=== PATIENT | female | born 2000 | race Caucasian/White ===

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

== ENCOUNTER → 2021-01-20 15:27 | Outpatient (CLI) | payer BC, SELFPAY | PROVIDERS: Visit Provider Obstetrics & Gynecology | DX: N39.0 Urinary tract infection, site not specified (principal) | CPT/HCPCS: 87086; 87088; 87186 ==

== ENCOUNTER 2021-07-07 12:44 | Emergency (ER) | payer BC, SELFPAY ==
[2021-07-07 14:10] VITALS: BP 135/86; PULSE 95; RESP 20; TEMP 36.4; O2SAT 100; BMI 25.3
--- NOTE | 2021-07-07 14:13 | HMH.EDUTC ---
[facility] [place] Disposition Clinical Impression: Abdominal pain Qualifiers: Abdominal location: left lower quadrant Qualified Code(s): R10.32 - Left lower quadrant pain Hematuria Qualifiers: Hematuria type: unspecified type Qualified Code(s): R31.9 - Hematuria, unspecified Disposition: Still a Patient Condition on Discharge: Fair Referrals: David Celestin [Primary Care Provider] - Time of Disposition: 15:24 Medical Decision Making - Medical Records Medical records reviewed: No: I reviewed the patient's medical records. - Steven Inquiry Pt receiving controlled substance: No Vital Signs: 07/07/21 14:10 Temperature 97.5 F L Temperature Source Oral Pulse Rate [Left] 95 H Respiratory Rate 20 Blood Pressure [Right Arm] 135/86 Blood Pressure Mean [Right Arm] 102 02 Sat by Pulse Oximetry 100 - Lab Data Lab results reviewed: Yes: I reviewed the patient's lab results. Lab Results 07/07/21 14:30: Urine Color Dark yellow, Urine Appearance Clear, Urine pH 6.0, Ur Specific [place] 1.025, Urine Protein Negative, Urine Glucose (UA) Negative, Urine Ketones Trace, Urine Blood 1+, Urine Nitrate Negative, Urine Bilirubin 1+ A, Urine Urobilinogen 2, Ur Leukocyte Esterase Negative Orders (Tests/Meds): ORDERS Category Date Time Status Urine , HCG Qual. Stat Lab 07/07/21 14:30 Ordered Urine Culture Stat Micro 07/07/21 14:30 Ordered Medical Decision Narrative: She was transferred to the ER due to abdominal pain. [facility] [place] HPI - General Stated complaint: right lower abdominal pain, diarrhea Time Seen by Provider: 07/07/21 14:13 - History of Present Illness Provider Complaint: She states that early this morning she started having right lower quadrant abdominal pain. She has had nausea and diarrhea, but no vomiting. She has a very poor appetite. She still has her appendix. She has a history of an episode of kidney stone pain, but she states it did not feel like she is feeling now. - Related Data Home Medications Medication Instructions Recorded Confirmed etonogestrel 68 mg subdermal SUBDERMAL 02/20/21 02/20/21 implant Allergies Allergy/AdvReac Type Severity Reaction Status Date / Time No Known Allergies Allergy Verified 02/20/21 14:31 [facility] History - Hepatitis A Screen Attestation statement:: This patient has been screened for Hepatitis A risk factors. I have reviewed the patient's past medical history: Yes Medical History: Reports:: Anxiety, Depression Denies:: Cancer, Diabetes Mellitus Type 1, Diabetes Mellitus Type 2, Hypertension, Internal Pacemaker, MRSA Comment: seasonal allergies Other Surgeries: Yes: No Previous Surgery. No: Pacemaker Amputation: No Fractures: No - Social History Smoking Status: Current every day smoker Tobacco Type: cigarettes # Packs/Day (cigarettes): 1 Alcohol Intake: never Substance Use Type: denies use Occupational Status: employed Housing: apartment Household Members: family - Psychiatric History Pschychiatric History:: Reports:: Anxiety, Depression Family Hx:: Cancer, Diabetes, Heart Attack, Hypertension, Asthma ROS Obtained: Yes All systems reviewed & no additional complaints - Eyes Eyes: Denies eye discharge - ENT Ears, Nose, Mouth, and Throat: Denies dizziness, Denies otalgia, Denies sore throat - Cardiovascular Cardiovascular: Denies chest pain - Respiratory Respiratory: Denies chest congestion, Denies cough, Denies dyspnea, Denies stridor, Denies wheezing - Gastrointestinal Gastrointestingal: Denies: abdominal pain, diarrhea, nausea, vomiting - Genitourinary Female Genitourinary: Denies dysuria, Reports flank pain, Denies urinary frequency, Denies urinary incontinence, Denies urinary hesitancy, Denies urinary urgency - Musculoskeletal Musculoskeletal: Denies back pain Physical Exam - General General appearance: alert, in no apparent distress - Head Head exam: atraumatic, normocephalic, normal inspection - E
[2021-07-07 14:37] LABS: Apearance,Urine Clear (Clear); Bilirubin,Urine 1+ (Negative); Blood, Urine 1+ (Negative); Color,Urine Dark Yellow (Yellow); Glucose,Urine (UA) Negative (Negative); Ketones,Urine TRACE (Negative); Protein,Urine Negative (Negative); Specific Gravity, Urine 1.025 (1.005-1.030); UTC Leukocyte Esterase,Urine Negative (Negative); UTC Nitrate,Urine Negative (Negative); Urobilinogen,Urine 2 EU/dl (0.2)
[2021-07-07 15:22] VITALS: BP 113/48; PULSE 77; RESP 18; TEMP 37.1; O2SAT 98; BMI 25.3
--- NOTE | 2021-07-07 15:23 | PC.NURSE ---
ED MD at bedside for update on POC
--- NOTE | 2021-07-07 15:33 | CT_ITS ---
FINAL REPORT TECHNIQUE: After the administration of intravenous contrast, axial images were obtained through the abdomen and pelvis by computed tomography. The study was performed with techniques to keep radiation dose as low as reasonably achievable, (ALARA). Individual dose reduction techniques using automated exposure control or adjustment of mA and/or kV according to the patient's size were employed. CLINICAL HISTORY: RLQ pain FINDINGS: Abdomen: The lung bases are clear. The liver parenchyma is homogeneous. The gallbladder is present. The spleen, pancreas, adrenals and kidneys appear unremarkable. The aorta is normal in caliber. There is no free fluid or adenopathy. Pelvis: The appendix is normal. The urinary bladder is unremarkable. There is no free fluid or adenopathy. The uterus is present and lies eccentric to the left. There is no localized inflammatory reaction. IMPRESSION: No acute intra-abdominal process. Normal appendix. Reviewed, Interpreted and Dictated by Jorge A Huang MD Transcribed by Sammy Lam Authenticated by Jorge A Huang MD on 07/07/2021 04:14:38 PM [facility]
[2021-07-07 15:35] LABS: Urine Pregnancy, HCG Qual. Negative (Negative)
--- NOTE | 2021-07-07 15:46 | PC.NURSE ---
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
[2021-07-07 15:58] LABS: Basophils % 0.4 % (0.1-2.0); Eosinophils # 0.2 K/mm3 (0.0-0.4); Eosinophils % 1.7 % (0.1-12.0); Hematocrit 40.3 % (37.0-47.0); Hemoglobin 13.7 g/dL (12.2-16.2); Lymphocytes # 2.4 K/mm3 (0.7-4.5); Lymphocytes % 23.4 % (10-50); Mean Corpuscular Volume 85.2 fl (81-99); Mean Platelet Volume 7.2 fl (7.4-10.4); Monocytes # 0.6 K/mm3 (0.1-1.0); Monocytes % 5.7 % (1.7-9.3); Neutrophils # 6.9 K/mm3 (1.8-7.8); Neutrophils % 68.8 % (37.0-80.0); Platelet Count 306 K/mm3 (142-424); Red Blood Count 4.72 M/mm3 (4.20-5.40); Red Cell Distribution Width 12.2 % (11.5-17.5)
[2021-07-07 16:08] LABS: Alanine Aminotransferase 13 U/L (12-78); Albumin Level 4.5 g/dl (3.5-5.0); Albumin/Globulin Ratio 1.5 (1.1-1.8); Alkaline Phosphatase 58 U/L (38-126); Anion Gap 11.2 mEq/L (5-15); Aspartate Amino Transferase 26 U/L (14-36); Blood Urea Nitrogen 11 mg/dl (7-17); Calcium 8.8 mg/dl (8.4-10.2); Carbon Dioxide 27 mmol/L (22.0-30.0); Chloride 106 mmol/L (98-107); Creatinine Clearance Estimated 130 mL/min (50-200); Estimated Glomerular Filt Rate 106 ml/min (>60); GFR (African American) 128 ML/MIN (>60); Glucose 100 mg/dl (74-100); Lipase 40 U/L (23-300); Potassium 4.2 mmoL/L (3.5-5.1); Sodium 140 mmol/L (136-145); Total Protein,Serum 7.5 g/dl (6.3-8.2)
[2021-07-07 16:21] VITALS: BP 101/58; PULSE 55; RESP 18; O2SAT 100
--- NOTE | 2021-07-07 16:34 | PC.NURSE ---
notified ER pt ct report is resulted in the system
--- NOTE | 2021-07-07 17:46 | HMH.EDABDPAI ---
ED Disposition Clinical Impression: Abdominal pain Qualifiers: Abdominal location: left lower quadrant Qualified Code(s): R10.32 - Left lower quadrant pain Disposition: Home, Self-Care Condition on Discharge: Good Instructions: Acute Abdominal Pain Prescriptions: Ondansetron [Zofran 4mg ODT] 4 mg PO BIDP PRN #10 tab PRN Reason: Nausea Transmission Status: Pending to [id number] Referrals: David Celestin [Primary Care Provider] - - Critical Care Critical Care Time: No Attestation: On 07/07/21, the high probability of a clinically significant, sudden or life threatening deterioration of the following system(s) required my full and direct attention, intervention and personal management. The time I documented below is in addition to time spent performing reported procedures but includes the following listed in this critical care notation. Medical Decision Making - Medical Records Medical records reviewed: Yes: I reviewed the patient's medical records. - Steven Inquiry Pt receiving controlled substance: No Vital Signs: 07/07/21 14:10 07/07/21 15:22 07/07/21 16:21 Temperature 97.5 F L 98.7 F Temperature Source Oral Oral Pulse Rate 55 L Pulse Rate [Left] 95 H 77 Respiratory Rate 20 18 18 Blood Pressure 101/58 L Blood Pressure [Right Arm] 135/86 113/48 L Blood Pressure Mean [Right Arm] 102 69 Blood Pressure Source Automatic Cuff Blood Pressure Position Sitting Blood Pressure Position [Right Arm] Sitting 02 Sat by Pulse Oximetry 100 98 100 Oxygen Delivery Method Room Air Room Air - Lab Data Lab Results 07/07/21 14:02: Urine HCG, Qual Negative 07/07/21 14:30: Urine Color Dark yellow, Urine Appearance Clear, Urine pH 6.0, Ur Specific [place] 1.025, Urine Protein Negative, Urine Glucose (UA) Negative, Urine Ketones Trace, Urine Blood 1+, Urine Nitrate Negative, Urine Bilirubin 1+ A, Urine Urobilinogen 2, Ur Leukocyte Esterase Negative 07/07/21 15:45: WBC 10.0, RBC 4.72, Hgb 13.7, Hct 40.3, MCV 85.2, MCH 29.0, MCHC 34.0, RDW 12.2, Plt Count 306, MPV 7.2 L, Neut % (Auto) 68.8, Lymph % (Auto) 23.4, [place] % (Auto) 5.7, Eos % (Auto) 1.7, Baso % (Auto) 0.4, Neut # (Auto) 6.9, Lymph # (Auto) 2.4, [place] # (Auto) 0.6, Eos # (Auto) 0.2, Baso # (Auto) 0.0 07/07/21 15:45: Sodium 140, Potassium 4.2, Chloride 106, Carbon Dioxide 27, Anion Gap 11.2, BUN 11, Creatinine 0.70, Estimated Creat Clear 130, Estimated GFR 106, Est GFR ( Amer) 128, Glucose 100, Calcium 8.8, Total Bilirubin 1.0, AST 26, ALT 13, Alkaline Phosphatase 58, Total Protein 7.5, Albumin 4.5, Globulin 3.0, Albumin/Globulin Ratio 1.5 07/07/21 15:45: Lipase 40 Result diagrams: 07/07/21 15:45 07/07/21 15:45 Orders (Tests/Meds): ED MEDICATIONS Discontinued Medications Generic Name Dose Route Start Last Admin Trade Name Luca PRN Reason Stop Dose Admin Sodium Chloride 1,000 mls @ 999 mls/hr 07/07/21 15:45 07/07/21 15:46 Sod Chlor 0.9% 1000ml Bag IV 07/07/21 16:45 999 mls/hr .Q1H1M JOSE ANTONIO Administration Iopamidol 75 ml 07/07/21 15:52 07/07/21 15:53 Iopamidol-370 (76%);100ml Bottle IV 07/07/21 15:53 75 ml ONCE ONE Administration Morphine Sulfate 4 mg 07/07/21 15:33 07/07/21 15:45 Morphine 4mg/Ml Syringe IV 07/07/21 15:34 4 mg ONCE ONE Administration Ondansetron HCl 4 mg 07/07/21 15:33 07/07/21 15:45 Ondansetron 4mg/2ml Vial IV 07/07/21 15:34 4 mg ONCE ONE Administration Sodium Chloride 10 ml 07/07/21 15:52 07/07/21 15:53 Sodium Chloride 0.9% 10ml Syr (Rad Only) IV 07/07/21 15:53 10 ml ONCE ONE Administration ORDERS Category Date Time Status Urine Culture Stat Micro 07/07/21 14:30 Ordered - CT Data CT Scan: Abdomen, Pelvis Time Received: 17:[address] Reviewed: Yes: I have reviewed the patient's CT results, I have viewed the radiologist's interpretation Preliminary Findings: Normal/NAD - Reevaluation(s) Time: 17:49 Reevaluation #1: On re
[2021-07-07 18:00] VITALS: BP 94/52; PULSE 54; RESP 16; O2SAT 100
[2021-07-07 18:13] VITALS: BP 94/52; PULSE 90; RESP 16; TEMP 37; O2SAT 98
== END 2021-07-07 18:15 | disposition home or self-care (01) ==
LOC: UTC 12:48 → ER 15:13
PROVIDERS: Nurse Practitioner Family; Emergency Provider Emergency Medicine; PCP Pediatrics
DX: R10.32 Left lower quadrant pain (principal); R31.9 Hematuria, unspecified; F41.8 Other specified anxiety disorders; F17.210 Nicotine dependence, cigarettes, uncomplicated
CPT/HCPCS: 74177; 80053; 81003; 81025; 83690; 85025; 87086; 96365; 96375; 99283; J2405; Q9967

== ENCOUNTER 2021-11-21 16:03 | Emergency (ER) | payer BC, SELFPAY ==
--- NOTE | 2021-11-21 16:03 | ECG_ITS ---
APPROVED REPORT Exam: Resting ECG HR:84 bpm ECG Measurements Heart Rate 84 AXES CA 144 P 67 QRSd 90 QRS 83 QT 347 T 38 QTc 388 Conclusion SINUS RHYTHM POSSIBLE LEFT ATRIAL ENLARGEMENT [-0.1mV P-WAVE IN V1/V2] BORDERLINE ECG UNCONFIRMED REPORT Electronically signed by : Paresh Bower MD 11/22/2021 17:57:41
[2021-11-21 16:04] VITALS: BP 121/90; PULSE 98; RESP 20; TEMP 37.6; O2SAT 98; BMI 23.9
--- NOTE | 2021-11-21 16:05 | XR_ITS ---
FINAL REPORT CLINICAL HISTORY: fever, body aches, cough, smoker COMPARISON: February 23, 2019 FINDINGS: SINGLE VIEW CHEST. The heart is normal in size. The mediastinum is unremarkable. The lungs are clear. There is no pneumothorax. IMPRESSION: No acute process. Reviewed, Interpreted and Dictated by Jorge A Huang MD Transcribed by Kasey Yost Authenticated and [facility]
--- NOTE | 2021-11-21 16:06 | HMH.EDCP ---
ED Disposition Clinical Impression: Bronchitis, Atypical chest pain Sinusitis Qualifiers: Sinusitis location: unspecified location Chronicity: acute Recurrence: non-recurrent Qualified Code(s): J01.90 - Acute sinusitis, unspecified Disposition: Home, Self-Care Condition on Discharge: Good Instructions: Sinusitis, Acute Bronchitis Additional Instructions: follow up PCP as needed, return here for worse or any concerns Prescriptions: Azithromycin [Zithromax 250mg tab] 250 mg PO DIRECTED #6 tab Transmission Status: Received by [id number] Referrals: Catrachito Cardona MD [Staff Physician] - - Critical Care Critical Care Time: No Attestation: On , the high probability of a clinically significant, sudden or life threatening deterioration of the following system(s) required my full and direct attention, intervention and personal management. The time I documented below is in addition to time spent performing reported procedures but includes the following listed in this critical care notation. Medical Decision Making - Medical Records Medical records reviewed: Yes: I reviewed the patient's medical records. - Steven Inquiry Pt receiving controlled substance: No Vital Signs: 11/21/21 16:04 Temperature 99.6 F Temperature Source Oral Pulse Rate [Brachial] 98 H Respiratory Rate 20 Blood Pressure [Right Arm] 121/90 Blood Pressure Mean [Right Arm] 100 Blood Pressure Source [Right Arm] Automatic Cuff Blood Pressure Position [Right Arm] Sitting 02 Sat by Pulse Oximetry 98 Oxygen Delivery Method Room Air - Lab Data Lab Results 11/21/21 16:05: SARS-CoV-2 (PCR) Not detected, Influenza A Untype (PCR) Not detected, Influenza Type B (PCR) Not detected 11/21/21 16:12: Urine HCG, Qual Negative - ECG Data Tracing #1 I reviewed this ECG and interpreted as documented below: ekg by me nsr, qrs narrow, no st eoev Chest Pain HPI - General Stated Complaint: CHEST PAIN Time Seen by Provider: 11/21/21 16:06 - History of Present Illness HPI narrative: prod cough, sinus congestion, sub fever, rt sided chest discomfort, 2 weeks Pain location: right chest Severity: mild Pain radiation: none Relieving factors: nothing Exacerbating factors: other (cough) Context: other (uri sumptoms) - Related Data Home Medications Medication Instructions Recorded Confirmed etonogestrel 68 mg subdermal SUBDERMAL 02/20/21 02/20/21 implant Previous Rx's Medication Instructions Recorded Ondansetron [Zofran 4mg ODT] 4 mg PO BIDP PRN #10 tab 07/07/21 Azithromycin [Zithromax 250mg 250 mg PO DIRECTED #6 tab 11/21/21 tab] Allergies Allergy/AdvReac Type Severity Reaction Status Date / Time No Known Allergies Allergy Verified 02/20/21 14:31 [facility] History - Hepatitis A Screen Attestation statement:: This patient has been screened for Hepatitis A risk factors. Medical History: Reports:: Anxiety, Depression Denies:: Cancer, Diabetes Mellitus Type 1, Diabetes Mellitus Type 2, Hypertension, Internal Pacemaker, MRSA Comment: seasonal allergies Other Surgeries: Yes: No Previous Surgery. No: Pacemaker Amputation: No Fractures: No - Social History Smoking Status: Current every day smoker Tobacco Type: cigarettes # Packs/Day (cigarettes): 1 Alcohol Intake: never Substance Use Type: denies use Occupational Status: employed Housing: apartment Household Members: family - Psychiatric History Pschychiatric History:: Reports:: Anxiety, Depression Family Hx:: Cancer, Diabetes, Heart Attack, Hypertension, Asthma ROS Obtained: Yes All systems reviewed & no additional complaints Physical Exam - General General appearance: alert, in no apparent distress - Head Head exam: atraumatic, normocephalic - Eye Eye exam: Present: normal appearance, PERRL, EOMI - Neck Neck exam: Present: normal inspection, full ROM, trachea midline - Chest Chest inspection: Pre
[2021-11-21 16:08] VITALS: BMI 23.9
--- NOTE | 2021-11-21 16:10 | PC.NURSE ---
PT ASSISTED TO BR FOR UA
--- NOTE | 2021-11-21 16:12 | PC.NURSE ---
XR AT BEDSIDE
[2021-11-21 16:23] LABS: Coronavirus 19, PCR Not Detected (NotDetected); Influenza A, PCR Not Detected (NotDetected); Influenza B, PCR Not Detected (NotDetected)
[2021-11-21 16:26] LABS: Urine Pregnancy, HCG Qual. Negative (Negative)
[2021-11-21 17:25] VITALS: BP 105/66; PULSE 88; RESP 18; TEMP 36.9; O2SAT 100
== END 2021-11-21 17:25 | disposition home or self-care (01) ==
PROVIDERS: Emergency Provider Emergency Medicine
DX: J01.90 Acute sinusitis, unspecified (principal); R07.9 Chest pain, unspecified; F32.A Depression, unspecified; F41.9 Anxiety disorder, unspecified; F17.210 Nicotine dependence, cigarettes, uncomplicated; Z82.49 Family history of ischemic heart disease and other diseases of the circulatory system; Z83.3 Family history of diabetes mellitus; Z80.9 Family history of malignant neoplasm, unspecified; Z82.5 Family history of asthma and other chronic lower respiratory diseases
CPT/HCPCS: 71045; 81025; 93005; 99284; C9803; U0003; U0005

== ENCOUNTER 2021-12-27 08:23 | Emergency (ER) | payer BC, SELFPAY ==
--- NOTE | 2021-12-27 08:30 | HMH.EDUTC ---
[facility] [place] Disposition Clinical Impression: Viral syndrome Pharyngitis Qualifiers: Pharyngitis/tonsillitis etiology: unspecified etiology Qualified Code(s): J02.9 - Acute pharyngitis, unspecified Disposition: Home, Self-Care Condition on Discharge: Good Instructions: DI for Pharyngitis/Tonsillopharyngitis -- Adult, DI for COVID-19 (Suspected or Confirmed ), Preventing the Spread of Coronavirus Discharge Instructions Additional Instructions: Drink plenty of fluids. Take tylenol or ibuprofen for pain or fever. Take the medications as directed. Follow up with your regular doctor. GO TO THE ER FOR ANY WORSENING SYMPTOMS Quarantine until you know the results of your covid-19 test. Notify your school or workplace of your results and follow their instructions regarding return to work/school. Prescriptions: Brompheniramine/Pseudoephed/Dm [Bromfed Dm Cough Syrup] 5 ml PO Q6HP PRN #240 ml PRN Reason: Cough Transmission Status: Received by [id number] Ondansetron [Zofran 4mg ODT] 4 mg PO Q8HP PRN #12 tab PRN Reason: Nausea Transmission Status: Received by [id number] Azithromycin [Z-[place] 250mg Tab*] 250 mg PO UD DOSE PK #6 tab Transmission Status: Received by [id number] Referrals: Lon Celestin II, MD [Primary Care Provider] - Time of Disposition: 09:05 Medical Decision Making - Medical Records Medical records reviewed: No: I reviewed the patient's medical records. - Steven Inquiry Pt receiving controlled substance: No Vital Signs: 12/27/21 08:41 12/27/21 09:06 Temperature 98.9 F 98.9 F Temperature Source Oral Pulse Rate 91 H Pulse Rate [Left] 91 H Respiratory Rate 16 16 Blood Pressure 127/70 Blood Pressure [Right Arm] 127/70 Blood Pressure Mean [Right Arm] 89 02 Sat by Pulse Oximetry 100 [facility] [place] HPI - General Stated complaint: body aches, ADAMSON, chills Time Seen by Provider: 12/27/21 08:30 - History of Present Illness Provider Complaint: She states that last night she started feeling bad and having body aches. She now has a sore throat and a dry cough. - Related Data Home Medications Medication Instructions Recorded Confirmed etonogestrel 68 mg subdermal SUBDERMAL 02/20/21 02/20/21 implant Previous Rx's Medication Instructions Recorded Ondansetron [Zofran 4mg ODT] 4 mg PO BIDP PRN #10 tab 07/07/21 Azithromycin [Zithromax 250mg 250 mg PO DIRECTED #6 tab 11/21/21 tab] Azithromycin [Z-[place] 250mg Tab*] 250 mg PO UD DOSE PK #6 tab 12/27/21 Brompheniramine/Pseudoephed/Dm 5 ml PO Q6HP PRN #240 ml 12/27/21 [Bromfed Dm Cough Syrup] Ondansetron [Zofran 4mg ODT] 4 mg PO Q8HP PRN #12 tab 12/27/21 Allergies Allergy/AdvReac Type Severity Reaction Status Date / Time No Known Allergies Allergy Verified 12/27/21 08:53 [facility] History - Hepatitis A Screen Attestation statement:: This patient has been screened for Hepatitis A risk factors. I have reviewed the patient's past medical history: Yes Medical History: Reports:: Anxiety, Depression Denies:: Cancer, Diabetes Mellitus Type 1, Diabetes Mellitus Type 2, Hypertension, Internal Pacemaker, MRSA Comment: seasonal allergies Other Surgeries: Yes: No Previous Surgery. No: Pacemaker Amputation: No Fractures: No - Social History Smoking Status: Current every day smoker Tobacco Type: cigarettes # Packs/Day (cigarettes): 1 Alcohol Intake: never Substance Use Type: denies use Occupational Status: employed Housing: apartment Household Members: family - Psychiatric History Pschychiatric History:: Reports:: Anxiety, Depression Family Hx:: Cancer, Diabetes, Heart Attack, Hypertension, Asthma ROS Obtained: Yes All systems reviewed & no additional complaints - Constitutional Constitutional: Reports as per HPI - Eyes Eyes: Denies eye discharge Physical Exam - General General appearance: alert, in no apparent distress - Head Head exam: atraum
[2021-12-27 08:41] VITALS: BP 127/70; PULSE 91; RESP 16; TEMP 37.2; O2SAT 100; BMI 23.9
[2021-12-27 09:06] VITALS: BP 127/70; PULSE 91; RESP 16; TEMP 37.2
== END 2021-12-27 09:11 | disposition home or self-care (01) ==
PROVIDERS: Emergency Provider Nurse Practitioner Family; PCP Radiology Radiation Oncology
DX: U07.1 COVID-19 (principal)
CPT/HCPCS: 99212; C9803; G0463; U0003; U0005

== ENCOUNTER 2022-02-12 13:59 | Emergency (ER) | payer BC, SELFPAY ==
[2022-02-12 14:25] VITALS: BP 134/68; PULSE 88; RESP 20; TEMP 37.1; O2SAT 97; BMI 25.4
--- NOTE | 2022-02-12 14:31 | EXP.UTC ---
Discharge Plan Disposition Patient Disposition: Home, Self-Care Condition: Good Prescriptions Prescriptions: New osniktwcypcxbji-wldhazbvg-CE [Bromfed DM] 2-30-10 mg/5 mL Syrup 5 ml PO Q6H PRN (Reason: Cough) Qty: 240 0RF No Action Nexplanon 68 mg implant SUBDERMAL ondansetron 4 MG tablet,disintegrating 4 mg PO BIDP PRN (Reason: Nausea) Qty: 10 0RF azithromycin 250 MG tablet 250 mg PO UD DOSE PK Qty: 6 0RF Rx Instructions: Take two (2) tablets today, then one (1) tablet days #2 thru #5 otpycplgifsxtah-xksjvlmag-WP 118 ML syrup 5 ml PO Q6HP PRN (Reason: Cough) Qty: 240 0RF ondansetron 4 MG tablet,disintegrating 4 mg PO Q8HP PRN (Reason: Nausea) Qty: 12 0RF azithromycin 250 MG tablet 250 mg PO DIRECTED Qty: 6 0RF Rx Instructions: Take two (2) tablets on day #1, then one (1) tablet day #2 thru #5 Referrals Follow up/Referrals: David Celestin [Primary Care Provider] - See instructions Activity Restrictions/Add. Instructions Additional Instructions/Restrictions: Drink plenty of fluids. Take tylenol or ibuprofen for pain or fever. Take the medications as directed. Follow up with your regular doctor. GO TO THE ER FOR ANY WORSENING SYMPTOMS Quarantine until you know the results of your covid-19 test. Notify your school or workplace of your results and follow their instructions regarding return to work/school. Clinical Impressions Clinical Impression: Sinusitis, Viral syndrome, Exposure to 2019 novel coronavirus Stand Alone Forms Stand Alone Forms: Work/School Release Instructions Patient Instructions: Sinusitis, DI for Sinusitis, Coronavirus Disease 2019, Preventing the Spread of Coronavirus Discharge Instructions Discharge ED Provider: Lon Martin [facility] HPI General Stated complaint: dizzy,runny nose,lightheaded Time Seen by Provider: 02/12/22 14:31 History of Present Illness Provider Complaint: She states that for the past 2 days she has had sore throat, sinus congestion, runny nose and low grade fever. Related Data Home Medications Medication Instructions Recorded Confirmed etonogestrel 68 mg subdermal subdermal 02/20/21 02/20/21 implant (Nexplanon) Previous Rx's Medication Instructions Recorded ondansetron 4 mg disintegrating 4 mg PO BIDP PRN Nausea #10 tabs 07/07/21 tablet azithromycin 250 mg tablet 250 mg PO DIRECTED #6 tabs 11/21/21 azithromycin 250 mg tablet 250 mg PO UD DOSE PK #6 tabs 12/27/21 zfiqsjmpmlvyiht-ojiktoiltbidvxv-GT 5 ml PO Q6HP PRN Cough #240 mL 12/27/21 2 mg-30 mg-10 mg/5 mL oral syrup ondansetron 4 mg disintegrating 4 mg PO Q8HP PRN Nausea #12 tabs 12/27/21 tablet abndgkubqdtibex-mcccfolsfpatawi-UN 5 ml PO Q6H PRN Cough #240 mL 02/12/22 2 mg-30 mg-10 mg/5 mL oral syrup (Bromfed DM) Allergies Allergy/AdvReac Type Severity Reaction Status Date / Time No Known Allergies Allergy Verified 12/27/21 08:53 PFSH PFS Medical History Anxiety Depression Migraine Urinary tract infection Social History Smoking Status: Current every day smoker tobacco type: cigarettes packs per day: 1 second hand exposure: Yes alcohol intake: never substance use type: denies use current occupational status: employed Travel in the last 8 weeks: None household members: family housing: apartment current occupational exposures/hazards: No caffeine: Yes ROS Obtained: Yes All systems reviewed & no additional complaints except as documented Constitutional Constitutional: Denies chills and Denies fever(s) Eyes Eyes: Denies eye discharge ENT Ears, Nose, Mouth, and Throat: Denies dizziness, Denies otalgia and Denies sore throat Cardiovascular Cardiovascular: Denies chest pain Respiratory Respiratory: Denies shortness of breath, Denies chest congestion, Denies cough, Denies s
[2022-02-12 14:55] LABS: UTC Influenza A Antigen Negative (Negative); UTC Influenza B Antigen Negative (Negative)
[2022-02-12 15:22] VITALS: BP 134/68; PULSE 88; RESP 20; TEMP 37.1; O2SAT 97
== END 2022-02-12 15:42 | disposition home or self-care (01) ==
PROVIDERS: Emergency Provider Nurse Practitioner Family; PCP Pediatrics
DX: B34.9 Viral infection, unspecified (principal); R42 Dizziness and giddiness; J32.9 Chronic sinusitis, unspecified; Z20.822 Contact with and (suspected) exposure to COVID-19; G43.909 Migraine, unspecified, not intractable, without status migrainosus; F32.A Depression, unspecified; F41.9 Anxiety disorder, unspecified; F17.210 Nicotine dependence, cigarettes, uncomplicated; Z79.899 Other long term (current) drug therapy; Z79.3 Long term (current) use of hormonal contraceptives
CPT/HCPCS: 87804; 99213; C9803; G0463; U0003; U0005

== ENCOUNTER 2022-02-20 15:21 | Emergency (ER) | payer BC, SELFPAY ==
[2022-02-20 15:52] VITALS: BP 119/80; PULSE 75; RESP 18; O2SAT 99; BMI 25.7
--- NOTE | 2022-02-20 15:53 | PC.NURSE ---
Pt to restroom for urine sample
--- NOTE | 2022-02-20 15:56 | PC.NURSE ---
placed call to get ct scans and er summary
[2022-02-20 15:58] VITALS: BP 119/80; PULSE 82; O2SAT 99
[2022-02-20 16:00] VITALS: BP 126/70; PULSE 81; O2SAT 99
[2022-02-20 16:16] LABS: Microscopic, Urine URINE MICROSCOPIC (MICROSCOPIC)
[2022-02-20 16:19] LABS: Basophils # 1.1 K/mm3 (0-0.2); Basophils % 6.6 % (0.1-2.0); Eosinophils # 0.4 K/mm3 (0.0-0.4); Eosinophils % 2.1 % (0.1-12.0); Hemoglobin 13.5 g/dL (12.2-16.2); Lymphocytes # 6.3 K/mm3 (0.7-4.5); Lymphocytes % 36.6 % (10-50); Mean Corpuscular HGB Conc 29.3 g/dL (31.8-35.4); Mean Corpuscular Hemoglobin 29.9 pg (27.0-31.2); Mean Corpuscular Volume 102.2 fl (81-99); Mean Platelet Volume 21.8 fl (7.4-10.4); Monocytes # 0.9 K/mm3 (0.1-1.0); Monocytes % 5.3 % (1.7-9.3); Neutrophils # 9.6 K/mm3 (1.8-7.8); Platelet Count 349 K/mm3 (142-424); White Blood Count 17.2 K/mm3 (4.8-10.8)
[2022-02-20 16:26] LABS: Appearance,Urine CLEAR (Clear); Bilirubin,Urine Negative (Negative); Blood, Urine 3+ (Negative); Color,Urine ORANGE (Yellow); Glucose,Urine (UA) TRACE (Negative); Ketones,Urine TRACE (Negative); Leukocyte Esterase,Urine TRACE (Negative); MANUAL DIFFERENTIAL MANUAL DIFFERENTIAL (MANUAL DIFF); Nitrate,Urine POSITIVE (Negative); PH,Urine 5.5 (5.0-8.5); Protein,Urine 2+ (Negative); Urobilinogen,Urine >=8.0 EU/dl (0.2)
[2022-02-20 16:27] LABS: Chloride 102 mmol/L (98-107); Potassium 3.3 mmoL/L (3.5-5.1); Sodium 138 mmol/L (136-145)
[2022-02-20 16:29] LABS: Alanine Aminotransferase 14 U/L (12-78); Aspartate Amino Transferase 29 U/L (14-36); Blood Urea Nitrogen 8 mg/dl (7-17); Creatinine Clearance Estimated 154 mL/min (50-200); Estimated Glomerular Filt Rate 126 ml/min (>60); GFR (African American) 153 ML/MIN (>60)
[2022-02-20 16:30] VITALS: BP 100/61; PULSE 78; RESP 20; O2SAT 98
[2022-02-20 16:30] LABS: Albumin Level 4.2 g/dl (3.5-5.0); Albumin/Globulin Ratio 1.5 (1.1-1.8); Alkaline Phosphatase 69 U/L (38-126); Anion Gap 15.3 mEq/L (5-15); Bilirubin,Total < 0.1 mg/dl (0.2-1.3); Calcium 8.2 mg/dl (8.4-10.2); Carbon Dioxide 24 mmol/L (22.0-30.0); Globulin 2.8 g/dL (1.3-3.2); Glucose 88 mg/dl (74-100)
[2022-02-20 16:40] LABS: Bacteria,Urine 3+ /lpf; RBC,Urine Occasional #/hpf (0-3); Squamous Epithelial Cell,Urine Occasional #/hpf (0-5)
[2022-02-20 17:00] VITALS: BP 103/63; PULSE 84; RESP 20; O2SAT 100
[2022-02-20 17:03] LABS: Eosinophils % 1 % (0-3); Lymphocytes % 31 % (10-50); Macrocytosis 1+; Monocytes % 7 % (2-9); Neutrophils % 61 % (42-76); Platelet Estimate Normal; Total Cells Counted 100
[2022-02-20 18:00] VITALS: BP 119/80; PULSE 75; RESP 18; TEMP 36.7; O2SAT 99
--- NOTE | 2022-02-20 18:02 | PC.NURSE ---
pt states that she has a nurse waiting on her at [facility] and wants to go there.
== END 2022-02-20 18:02 | disposition left against medical advice (07) ==
PROVIDERS: Emergency Provider Emergency Medicine; PCP Pediatrics
DX: N39.0 Urinary tract infection, site not specified (principal); B96.89 Other specified bacterial agents as the cause of diseases classified elsewhere; Z53.21 Procedure and treatment not carried out due to patient leaving prior to being seen by health care provider
CPT/HCPCS: 80053; 81001; 85007; 85025; 87086; 87088; 87186

== ENCOUNTER 2022-04-04 09:47 | Emergency (ER) | payer BC, SELFPAY ==
[2022-04-04 09:59] VITALS: BP 114/68; PULSE 77; RESP 15; TEMP 36.7; O2SAT 100; BMI 25.7
[2022-04-04 10:06] LABS: UTC Influenza A Antigen Negative (Negative); UTC Influenza B Antigen Negative (Negative); UTC Strep Screen (Rapid) Positive (Negative)
--- NOTE | 2022-04-04 10:38 | EXP.UTC ---
Discharge Plan Disposition Patient Disposition: Home, Self-Care Condition: Good Prescriptions Prescriptions: New ulbqzebeoclonhd-mpqaaious-EU [Bromfed DM] 2-30-10 mg/5 mL Syrup 5 ml PO Q6H PRN (Reason: Cough) Qty: 240 0RF ondansetron 4 mg Tablet,Disintegrating 4 mg PO Q8H PRN (Reason: Nausea) Qty: 12 0RF amoxicillin [amoxicillin] 500 mg tablet 500 mg PO TID 10 Days Qty: 30 0RF No Action Nexplanon 68 mg implant SUBDERMAL Referrals Follow up/Referrals: David Celestin [Primary Care Provider] - See instructions Activity Restrictions/Add. Instructions Additional Instructions/Restrictions: Drink plenty of fluids. Take tylenol or ibuprofen for pain or fever. Take the medications as directed. Follow up with your regular doctor. GO TO THE ER FOR ANY WORSENING SYMPTOMS Clinical Impressions Clinical Impression: Strep throat Stand Alone Forms Stand Alone Forms: Work/School Release Instructions Patient Instructions: DI for Influenza -- Adult, Oseltamivir Discharge ED Provider: Lon Martin [facility] General Stated complaint: Drainage, sore throat, SOA Mode of Arrival: Ambulatory Source of Information: Patient Limitations: No Limitations Time Seen by Provider: 04/04/22 10:30 Description of Symptoms (Recalled from Triage Doc. by RN): pt comes in with c/o cough, sore throat, body aches. symptoms began yesterday HEENT Symptoms (Recalled from RN notes): Yes Resp Symptoms (Recalled from RN notes): Yes Skin Symptoms (Recalled from RN notes): No MS Symptoms (Recalled from RN notes): No Functional Status (Recalled from RN notes): n/a History of Present Illness Provider Complaint: She states that for the past 2 days she has had sore throat, chills, body aches and low grade fever. Related Data Home Medications Medication Instructions Recorded Confirmed etonogestrel 68 mg subdermal subdermal 02/20/21 02/20/21 implant (Nexplanon) Previous Rx's Medication Instructions Recorded amoxicillin 500 mg tablet 500 mg PO TID 10 days #30 tabs 04/04/22 llxjbvuyvakbtmj-wafdnfxnzapmudm-RW 5 ml PO Q6H PRN Cough #240 mL 04/04/22 2 mg-30 mg-10 mg/5 mL oral syrup (Bromfed DM) ondansetron 4 mg disintegrating 4 mg PO Q8H PRN Nausea #12 tabs 04/04/22 tablet Allergies Allergy/AdvReac Type Severity Reaction Status Date / Time No Known Allergies Allergy Verified 04/04/22 10:02 Worker's Comp Is this a Worker's Comp case?: No PFSH PFSH Medical History Anxiety Depression Migraine Urinary tract infection Social History Smoking Status: Unknown if ever smoked second hand exposure: Yes alcohol intake: never substance use type: denies use current occupational status: employed Travel in the last 8 weeks: None household members: family housing: apartment current occupational exposures/hazards: No caffeine: Yes ROS Obtained: Yes All systems reviewed & no additional complaints except as documented Constitutional Constitutional: Reports chills and Reports fever(s) Eyes Eyes: Denies eye discharge ENT Ears, Nose, Mouth, and Throat: Reports as per HPI Cardiovascular Cardiovascular: Denies chest pain Respiratory Respiratory: Denies chest congestion and Reports cough Gastrointestinal Gastrointestingal: Reports nausea; Denies abdominal pain, constipation, cramping, diarrhea or vomiting Musculoskeletal Musculoskeletal: Denies arthralgias Integumentary/Breasts Skin/Breast: Denies rash Neurologic Neurologic: Denies paresthesias Physical Exam General General appearance: alert and in no apparent distress Head Head exam: atraumatic, normocephalic and normal inspection Eye Eye exam: Present normal appearance, PERRL and EOMI ENT ENT exam: Present mucous membranes moist and normal external ear exam Expanded ENT Exam TM/Canal exam: Bilateral TM: erythema
[2022-04-04 11:06] VITALS: BP 114/68; PULSE 77; RESP 15; TEMP 36.7
== END 2022-04-04 11:13 | disposition home or self-care (01) ==
PROVIDERS: Emergency Provider Nurse Practitioner Family; PCP Pediatrics
DX: J02.0 Streptococcal pharyngitis (principal)
CPT/HCPCS: 87804; 87880; 99212; G0463

== ENCOUNTER 2022-08-12 12:53 | Emergency (ER) | payer BC, SELFPAY ==
[2022-08-12 13:20] VITALS: BP 122/83; PULSE 101; RESP 18; TEMP 37.3; O2SAT 100; BMI 25.7
[2022-08-12 13:42] LABS: UTC Strep Screen (Rapid) Negative (Negative)
--- NOTE | 2022-08-12 13:52 | EXP.UTC ---
Discharge Plan Disposition Patient Disposition: Home, Self-Care Condition: Good Prescriptions Prescriptions: New azithromycin [Zithromax Z-Jean Marie] 250 mg tablet See Rx Instructions .ROUTE .COMPLEX 5 Days Qty: 6 0RF Rx Instructions: For 250 mg dose pack: take 500 mg today (day 1), then 250 mg for 4 days (days 2-5) methylprednisolone [Medrol (Jean Marie)] 4 mg tablets,dose pack See Rx Instructions .Route .COMPLEX 6 Days Qty: 21 0RF Rx Instructions: taper pack; No Action Nexplanon 68 mg implant SUBDERMAL Referrals Follow up/Referrals: David Celestin [Primary Care Provider] - See instructions Activity Restrictions/Add. Instructions Additional Instructions/Restrictions: *Monitor Temp, Over the counter Motrin or Tylenol as directed/as needed Tylenol every 4 hours and Motrin every 6 hours (as long as your family doctor has told you that you can take it) for fever or pain. and straight to ER if unable to lower temp less than 101.0 after medication given *Warm salt water gargles may help to soothe the throat *Throat Lozenges? *Warm fluids like tea with honey may help to soothe the throat? *Sleep elevated *Humidifier/Vaporizer Your throat swab was sent for culture. Those results are typically sent to your primary care. Be sure to follow up in 2-3 days with your family doctor/primary care physician if no improvement so they can review those result and treat if necessary. If you don?t have a primary care doctor, I recommend you get one but in the mean time, you will have to return to a walk in clinic Follow up IMMEDIATELY for new or worsening symptoms or no Noticeable improvement over the next 48-72 hours. 911 for difficulty breathing or swallowing Clinical Impressions Clinical Impression: Sinusitis Instructions Patient Instructions: DI for Sinusitis, Sinusitis Discharge ED Provider: Kaelyn Keen [facility] [place] General Stated complaint: congestion Mode of Arrival: Ambulatory Source of Information: Patient Limitations: No Limitations Time Seen by Provider: 08/12/22 13:52 Description of Symptoms (Recalled from Triage Doc. by RN): PATIENT C/O CONGESTION, SORE THROAT, COUGH, AND HEADACHE HEENT Symptoms (Recalled from RN notes): Yes Resp Symptoms (Recalled from RN notes): Yes Skin Symptoms (Recalled from RN notes): No MS Symptoms (Recalled from RN notes): No Functional Status (Recalled from RN notes): WNL History of Present Illness Provider Complaint: Patient states that she has been having sinus pain and pressure for several weeks thought it was allergies and she has been taking sudafed but not helped much, sore throat, cough and sinus headache States that today she wasnt feeling any better so she came in Related Data Home Medications Medication Instructions Recorded Confirmed etonogestrel 68 mg subdermal subdermal 02/20/21 02/20/21 implant (Nexplanon) Previous Rx's Medication Instructions Recorded azithromycin 250 mg tablet See Rx Instructions PO .COMPLEX 5 08/12/22 (Zithromax Z-Jean Marie) days #6 tabs methylprednisolone 4 mg tablets in See Rx Instructions .Route 08/12/22 a dose pack (Medrol (Jean Marie)) .COMPLEX 6 days #21 tabs Allergies Allergy/AdvReac Type Severity Reaction Status Date / Time No Known Allergies Allergy Verified 04/04/22 10:02 Worker's Comp Is this a Worker's Comp case?: No [facility] Disclaimer: The information contained in this section may have been updated after the patient was seen, as this information can be updated by other users. Medical History Anxiety Depression Migraine Urinary tract infection Social History Smoking Status: Unknown if ever smoked second hand exposure: Yes alcohol intake: never substance use type: denies use current occupational status: employed Travel in the last 8 weeks: None household members
[2022-08-12 14:04] VITALS: BP 122/83; PULSE 101; RESP 18; TEMP 37.3; O2SAT 100
== END 2022-08-12 14:06 | disposition home or self-care (01) ==
PROVIDERS: Emergency Provider Nurse Practitioner; PCP Pediatrics
DX: J01.90 Acute sinusitis, unspecified (principal); R05.1 Acute cough
CPT/HCPCS: 87880; 99212; 99214; G0463

== ENCOUNTER 2022-08-29 11:44 | Emergency (ER) | payer BC, SELFPAY ==
[2022-08-29 12:10] VITALS: BP 110/84; PULSE 96; RESP 19; TEMP 37.1; O2SAT 99; BMI 19.9
--- NOTE | 2022-08-29 12:20 | EXP.UTC ---
Discharge Plan Disposition Patient Disposition: Home, Self-Care Condition: Good Prescriptions Prescriptions: New ondansetron 4 mg tablet,disintegrating 4 mg PO Q8H PRN (Reason: nausea and vomiting) Qty: 10 0RF No Action Nexplanon 68 mg implant SUBDERMAL azithromycin [Zithromax Z-Jean Marie] 250 mg tablet See Rx Instructions .ROUTE .COMPLEX 5 Days Qty: 6 0RF Rx Instructions: For 250 mg dose pack: take 500 mg today (day 1), then 250 mg for 4 days (days 2-5) methylprednisolone [Medrol (Jean Marie)] 4 mg tablets,dose pack See Rx Instructions .Route .COMPLEX 6 Days Qty: 21 0RF Rx Instructions: taper pack; Referrals Follow up/Referrals: David Celestin [Primary Care Provider] - See instructions Activity Restrictions/Add. Instructions Additional Instructions/Restrictions: *Monitor Temp, Over the counter Motrin or Tylenol as directed/as needed Tylenol every 4 hours and Motrin every 6 hours (as long as your family doctor has told you that you can take it) for fever or pain. and straight to ER if unable to lower temp less than 101.0 after medication given *Warm salt water gargles may help to soothe the throat *Throat Lozenges? *Warm fluids like tea with honey may help to soothe the throat? *Sleep elevated *Humidifier/Vaporizer Follow up IMMEDIATELY for new or worsening symptoms or no Noticeable improvement over the next 48-72 hours. 911 for difficulty breathing or swallowing You were tested for today for COVID19 your test result should be back in the next 24-48 hours, you may check your results on the [facility] Clinical Impressions Clinical Impression: Viral syndrome Stand Alone Forms Stand Alone Forms: Work/School Release Instructions Patient Instructions: DI for Viral Syndrome Discharge ED Provider: Kaelyn Keen [facility] [place] General Stated complaint: Bodyaches, covid exposure Time Seen by Provider: 08/29/22 12:20 History of Present Illness Provider Complaint: 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 states that she has been having body aches and chills along with some N/V so she came in to get checked for COVID Related Data Home Medications Medication Instructions Recorded Confirmed etonogestrel 68 mg subdermal subdermal 02/20/21 02/20/21 implant (Nexplanon) Previous Rx's Medication Instructions Recorded azithromycin 250 mg tablet See Rx Instructions PO .COMPLEX 5 08/12/22 (Zithromax Z-Jean Marie) days #6 tabs methylprednisolone 4 mg tablets in See Rx Instructions .Route 08/12/22 a dose pack (Medrol (Jean Marie)) .COMPLEX 6 days #21 tabs ondansetron 4 mg disintegrating 4 mg PO Q8H PRN nausea and 08/29/22 tablet vomiting #10 tabs Allergies Allergy/AdvReac Type Severity Reaction Status Date / Time No Known Allergies Allergy Verified 04/04/22 10:02 [facility] Disclaimer: The information contained in this section may have been updated after the patient was seen, as this information can be updated by other users. Medical History Anxiety Depression Migraine Urinary tract infection Social History Smoking Status: Unknown if ever smoked second hand exposure: Yes alcohol intake: never substance use type: denies use current occupational status: employed Travel in the last 8 weeks: None household members: family housing: apartment current occupational exposures/hazards: No caffeine: Yes ROS Obtained: Yes All systems reviewed & no additional complaints except as documented and Yes Systems reviewed as appropriate & no additional complaints except as documented Constitutional Constitutional: Reports system reviewed and no additional complaints, except as documented, Reports as per HPI, Reports body ache and Reports chills ENT Ears, Nose, Mouth, and Throat: Rep
[2022-08-29 12:36] VITALS: BP 110/84; PULSE 96; RESP 19; TEMP 37.1; O2SAT 99
== END 2022-08-29 12:35 | disposition home or self-care (01) ==
PROVIDERS: Emergency Provider Nurse Practitioner; PCP Pediatrics
DX: B34.9 Viral infection, unspecified (principal); Z20.822 Contact with and (suspected) exposure to COVID-19
CPT/HCPCS: 99212; 99214; C9803; G0463; U0003; U0005

== ENCOUNTER 2023-03-19 10:49 | Emergency (ER) | payer BC, SELFPAY ==
[2023-03-19 10:50] VITALS: BP 125/47; PULSE 104; RESP 18; TEMP 37.1; O2SAT 97; BMI 25.0
--- NOTE | 2023-03-19 11:15 | EXP.UTC ---
Discharge Plan Disposition Patient Disposition: Home, Self-Care Condition: Good Prescriptions Prescriptions: New phenazopyridine [Pyridium] 200 mg tablet 200 mg PO Q8H 2 Days Qty: 6 0RF cefdinir 300 mg capsule 300 mg PO BID 7 Days Qty: 14 0RF No Action Nexplanon 68 mg implant SUBDERMAL ondansetron 4 mg tablet,disintegrating 4 mg PO Q8H PRN (Reason: nausea and vomiting) Qty: 10 0RF Referrals Follow up/Referrals: David Celestin [Primary Care Provider] - See instructions Activity Restrictions/Add. Instructions Additional Instructions/Restrictions: *Increase fluids. Water not Soda or Tea *Start antibiotic immediately and be sure to take as ordered for the FULL length of time although you should start to see improvement over the next 48 hours *Pyridium as needed Remember this medication will turn your urine . This is normal but it will stain what ever it gets on *You should not use Pyridium for more than 48 hours. If so , follow up with your primary physician to review urine culture and ensure that antibiotic is adequate for infection *Be SURE to follow up anytime for new or worsening symptoms with your family doctor. AND in 48 hours for urine culture results with your family doctor, if you do not have a doctor then you may call back to the [facility] for urine culture results and further treatment. We do recommend that you choose and establish care with a Primary Care Physician. ?AND follow up with them ?in 10-14 days to repeat UA to ensure infection is resolved and blood no longer present *Be sure to let your PCP know that we sent urine cultures from the [facility] so they can follow up to ensure that you area the on the correct antibiotic Call your doctor office and make appointment for 48 hours (2 days from today) ?to follow up and get the results of your urine culture and further treatment Clinical Impressions Clinical Impression: UTI (urinary tract infection) Qualifiers: Urinary tract infection type: site unspecified Hematuria presence: without hematuria Qualified Code(s): N39.0 - Urinary tract infection, site not specified Instructions Patient Instructions: DI for Urinary Tract Infection (UTI), DI for Viral Upper Respiratory Infection -- Adult Discharge ED Provider: Kaelyn Keen [facility] [place] General Stated complaint: sore throat, runny nose Mode of Arrival: Ambulatory Source of Information: Patient Limitations: No Limitations Time Seen by Provider: 03/19/23 11:15 Description of Symptoms (Recalled from Triage Doc. by RN): mid to lower back spasms, cough, congestion, ADAMSON, and runny nose. HEENT Symptoms (Recalled from RN notes): Yes Resp Symptoms (Recalled from RN notes): No Skin Symptoms (Recalled from RN notes): No MS Symptoms (Recalled from RN notes): No Functional Status (Recalled from RN notes): n/a History of Present Illness Provider Complaint: Patient states that she has been having sinus congsetion, runny nose and cough Now started having achy like pain in her lower back area states that she has been having burning with urination and frequency and urgency not sure if she may have a UTI on top of her cold Related Data Home Medications Medication Instructions Recorded Confirmed etonogestrel 68 mg subdermal subdermal 02/20/21 02/20/21 implant (Nexplanon) Previous Rx's Medication Instructions Recorded ondansetron 4 mg disintegrating 4 mg PO Q8H PRN nausea and 08/29/22 tablet vomiting #10 tabs cefdinir 300 mg capsule 300 mg PO BID 7 days #14 caps 03/19/23 phenazopyridine 200 mg tablet 200 mg PO Q8H pain 2 days #6 tabs 03/19/23 (Pyridium) Allergies Allergy/AdvReac Type Severity Reaction Status Date / Time No Known Allergies Allergy Verified 08/29/22 12:27 Worker's Comp Is this a Worker's Comp case?: No [facility] Disclaimer: The information contained in this section may have been updated after the patient was seen, as this information can be updated by other users.
[2023-03-19 11:21] LABS: Apearance,Urine Cloudy (Clear); Bilirubin,Urine Negative (Negative); Blood, Urine Negative (Negative); Color,Urine Dark Yellow (Yellow); Glucose,Urine (UA) Negative (Negative); Ketones,Urine Negative (Negative); Protein,Urine Negative (Negative); UTC Leukocyte Esterase,Urine Trace (Negative); UTC Nitrate,Urine Positive (Negative); UTC Strep Screen (Rapid) Negative (Negative); Urobilinogen,Urine 0.2 EU/dl (0.2)
[2023-03-19 11:22] LABS: UTC Pregnancy Test, Urine Negative (Negative)
[2023-03-19 11:45] VITALS: BP 125/47; PULSE 104; RESP 18; TEMP 37.1; O2SAT 97
== END 2023-03-19 11:45 | disposition home or self-care (01) ==
PROVIDERS: Emergency Provider Nurse Practitioner; PCP Pediatrics
DX: N39.0 Urinary tract infection, site not specified; B96.29 Other Escherichia coli [E. coli] as the cause of diseases classified elsewhere
CPT/HCPCS: 81003; 81025; 87086; 87880; 99212; 99214; G0463

== ENCOUNTER 2023-06-19 16:16 | Emergency (ER) | payer OTHER, SELFPAY ==
[2023-06-19] VITALS (10 sets, daily range): BP systolic 103–133; BP diastolic 56–98; PULSE 61–84; RESP 17–20; TEMP 36.8–37; O2SAT 98–100; BMI 25.8; BMI 25.7
[2023-06-19 16:58] LABS: Apearance,Urine Clear (Clear); Bilirubin,Urine Negative (Negative); Blood, Urine Trace (Negative); Color,Urine Yellow (Yellow); Glucose,Urine (UA) Negative (Negative); Ketones,Urine Negative (Negative); PH,Urine 7.5 (5.0-8.5); Protein,Urine Trace (Negative); UTC Leukocyte Esterase,Urine Trace (Negative); UTC Nitrate,Urine Negative (Negative); UTC Pregnancy Test, Urine Negative (Negative); Urobilinogen,Urine 1 EU/dl (0.2)
--- NOTE | 2023-06-19 17:02 | ED_ITS ---
Discharge Plan Disposition Patient Disposition: Still a Patient Prescriptions Prescriptions: No Action Nexplanon 68 mg implant SUBDERMAL ondansetron 4 mg tablet,disintegrating 4 mg PO Q8H PRN (Reason: nausea and vomiting) Qty: 10 0RF phenazopyridine [Pyridium] 200 mg tablet 200 mg PO Q8H 2 Days Qty: 6 0RF cefdinir 300 mg capsule 300 mg PO BID 7 Days Qty: 14 0RF Referrals Follow up/Referrals: David Celestin [Primary Care Provider] - See instructions Discharge ED Provider: Kaelyn Keen [facility] [place] H[place] General Stated complaint: nausea,abdominal pain Mode of Arrival: Ambulatory Source of Information: Patient Limitations: No Limitations Time Seen by Provider: 06/19/23 17:02 Description of Symptoms (Recalled from Triage Doc. by RN): Patient reports right upper quadrant pain and nausea since this morning. HEENT Symptoms (Recalled from RN notes): No Resp Symptoms (Recalled from RN notes): No Skin Symptoms (Recalled from RN notes): No MS Symptoms (Recalled from RN notes): No Functional Status (Recalled from RN notes): wnl History of Present Illness Provider Complaint: Patient states she woke up this morning having pain in her right upper quad States that as the day went on the pain has continued to get worse States that she has tried to eat several times today but it made her nauseous States that she hasnt had any vomiting just nausea States this evening the pain was getting worse so she came in Related Data Home Medications Medication Instructions Recorded Confirmed etonogestrel 68 mg subdermal subdermal 02/20/21 02/20/21 implant (Nexplanon) Previous Rx's Medication Instructions Recorded ondansetron 4 mg disintegrating 4 mg PO Q8H PRN nausea and 08/29/22 tablet vomiting #10 tabs cefdinir 300 mg capsule 300 mg PO BID 7 days #14 caps 03/19/23 phenazopyridine 200 mg tablet 200 mg PO Q8H pain 2 days #6 tabs 03/19/23 (Pyridium) Allergies Allergy/AdvReac Type Severity Reaction Status Date / Time No Known Allergies Allergy Verified 08/29/22 12:27 Worker's Comp Is this a Worker's Comp case?: No [facility] Disclaimer: The information contained in this section may have been updated after the patient was seen, as this information can be updated by other users. Medical History Anxiety Depression Migraine Urinary tract infection Social History Smoking Status: Unknown if ever smoked second hand exposure: Yes alcohol intake: never substance use type: denies use current occupational status: employed Travel in the last 8 weeks: None household members: family housing: apartment current occupational exposures/hazards: No caffeine: Yes ROS Obtained: Yes All systems reviewed & no additional complaints except as documented and Yes Systems reviewed as appropriate & no additional complaints except as documented Constitutional Constitutional: Reports system reviewed and no additional complaints, except as documented, Reports as per HPI, Denies body ache, Denies chills and Denies fever(s) ENT Ears, Nose, Mouth, and Throat: Reports system reviewed and no additional complaints, except as documented and Reports as per HPI Cardiovascular Cardiovascular: Reports system reviewed and no additional complaints, except as documented and Reports as per HPI Respiratory Respiratory: Reports system reviewed and no additional complaints, except as documented and Reports as per HPI Gastrointestinal Gastrointestingal: Reports system reviewed and no additional complaints, except as documented, as per HPI, abdominal pain (pain right upper that has now moved across upper abd. ) and nausea; Denies cramping, diarrhea or vomiting Genitourinary Female Genitourinary: Reports system reviewed and no additional complaints, except as documented and Reports as per HPI Physical Exam General General appearance: alert and in no apparent distress ENT ENT exam: Present mucous membranes moist Respiratory Respiratory exam: Present normal lung sounds bilaterally; Absent respiratory distress or wheezes Cardiovascular Cardiovascular exam: Present regular rate, normal rhythm and normal heart sounds Abdominal Exam Abdominal exam: Present soft and tenderness (reports slight tenderness with palpation in right upper quad); Absent distention Neurological Exam Neurological exam: Present alert, oriented X3 and normal gait Medical Decision Making Steven Inquiry Pt receiving controlled substance: No Steven was queried for this patient: No Vital Signs: 06/19/23 16:17 Temperature 98.6 F Temperature Source Oral Pulse Rate [Radial] 74 Respiratory Rate 18 Blood Pressure [Right Arm] 133/92 H Blood Pressure Mean [Right Arm] 105 Blood Pressure Source [Right Arm] Automatic Cuff Blood Pressure Position [Right Arm] Sitting 02 Sat by Pulse Oximetry 100 Oxygen Delivery Method Room Air Lab Data Lab results reviewed: Yes I reviewed the patient's lab results. Lab Results 06/19/23 16:57: Urine Color Yellow, Urine Appearance Clear, Urine pH 7.5, Ur Specific [place] 1.020, Urine Protein Trace, Urine Glucose (UA) Negative, Urine Ketones Negative, Urine Blood Trace, Urine Nitrate Negative, Urine Bilirubin Negative, Urine Urobilinogen 1, Ur Leukocyte Esterase Trace, Tst Clinic Negative Medical Decision Narrative: Patient states that she woke up this morning with pain in her right upper quad that has continued throughout the day and this even has continued to get worse with nausea when she tries to eat denies vomiting, denies diarrhea and denies fever. States she tried to eat earlier but everything was making her nausea worse so she came in Discussed with patient and due to complaint of pain in abdomen transfer to the ED for further evaluation and she agreed Called ED and patient was moved to the ED for further evaluation and treatment
[2023-06-19 17:32] LABS: Basophils # 0.1 K/mm3 (0-0.2); Eosinophils # 0.2 K/mm3 (0.0-0.4); Eosinophils % 1.6 % (0.1-12.0); Hematocrit 43.8 % (37.0-47.0); Hemoglobin 15.2 g/dL (12.2-16.2); Lymphocytes % 26.9 % (10-50); Mean Corpuscular HGB Conc 34.7 g/dL (31.8-35.4); Mean Corpuscular Hemoglobin 30.3 pg (27.0-31.2); Mean Corpuscular Volume 87.3 fl (81-99); Mean Platelet Volume 7.7 fl (7.4-10.4); Monocytes # 0.6 K/mm3 (0.1-1.0); Monocytes % 4.9 % (1.7-9.3); Neutrophils # 7.4 K/mm3 (1.8-7.8); Neutrophils % 65.7 % (37.0-80.0); Platelet Count 269 K/mm3 (142-424); Red Blood Count 5.01 M/mm3 (4.20-5.40); Red Cell Distribution Width 12.8 % (11.5-17.5); White Blood Count 11.3 K/mm3 (4.8-10.8)
[2023-06-19 17:35] LABS: Chloride 104 mmol/L (98-107); Sodium 135 mmol/L (136-145)
[2023-06-19 17:36] LABS: Potassium 3.9 mmoL/L (3.5-5.1)
[2023-06-19 17:38] LABS: Alanine Aminotransferase 22 U/L (12-78); Alkaline Phosphatase 63 U/L (38-126); Anion Gap 8.9 mEq/L (5-15); Aspartate Amino Transferase 31 U/L (14-36); Bilirubin,Total 0.6 mg/dl (0.2-1.3); Blood Urea Nitrogen 10 mg/dl (7-17); Carbon Dioxide 26 mmol/L (22.0-30.0); Creatinine Clearance Estimated 151 mL/min (50-200); Estimated Glomerular Filt Rate 124 ml/min (>60); GFR (African American) 150 ML/MIN (>60); Lipase 40 U/L (23-300)
[2023-06-19 17:39] LABS: Albumin Level 4.4 g/dl (3.5-5.0); Albumin/Globulin Ratio 1.4 (1.1-1.8); Calcium 8.6 mg/dl (8.4-10.2); Globulin 3.2 g/dL (1.3-3.2); Glucose 94 mg/dl (74-100); Total Protein,Serum 7.6 g/dl (6.3-8.2)
--- NOTE | 2023-06-19 17:54 | CT_ITS ---
PROCEDURE INFORMATION: Exam: CT Abdomen And Pelvis With Contrast Exam date and time: 06/19/2023 6:01 PM Age: 23 years old Clinical indication: Abdominal pain; Additional info: Rlq abd pain TECHNIQUE: Imaging protocol: Computed tomography of the abdomen and pelvis with contrast. Radiation optimization: All CT scans at this facility use at least one of these dose optimization techniques: automated exposure control; mA and/or kV adjustment per patient size (includes targeted exams where dose is matched to clinical indication); or iterative reconstruction. Contrast material: ISOVUE; Contrast volume: 75 ml; Contrast route: IV; COMPARISON: 1. CT ABDOMEN PELVIS W CON 07/07/2021 3:[address] abdomen pelvis w con 03/21/2018 12:[address] abdomen pelvis wo con 08/05/2017 3:25 PM FINDINGS: Liver: Normal. Gallbladder and bile ducts: Normal. Pancreas: Normal. Spleen: Normal. Adrenal glands: The adrenal glands appear normal. Kidneys and ureters: There are no soft tissue renal masses or hydronephrosis. Stomach and bowel: The stomach, small bowel, and colon are well-distended and show no evidence of wall thickening, masses, or obstruction. Appendix: The appendix is normal in appearance. Intraperitoneal space: Unremarkable. Vasculature: The abdominal aorta and its major branches appear normal without evidence of aneurysm or stenosis. There are pelvic phleboliths. Lymph nodes: No lymphadenopathy. Urinary bladder: There is moderate distention of the urinary bladder. Reproductive: 3 cm right adnexal cyst which may be hemorrhagic, further evaluation with pelvic ultrasound is suggested. Bones/joints: The visualized osseous structures of the abdomen and pelvis appear normal for patient age. Soft tissues: Unremarkable. IMPRESSION: 1. 3 cm right adnexal cyst which may be hemorrhagic, further evaluation with pelvic ultrasound is suggested. 2. Normal appendix.
--- NOTE | 2023-06-19 17:57 | HMH.EDGENADL ---
Discharge Plan Disposition Patient Disposition: Still a Patient Prescriptions Prescriptions: No Action Nexplanon 68 mg implant SUBDERMAL ondansetron 4 mg tablet,disintegrating 4 mg PO Q8H PRN (Reason: nausea and vomiting) Qty: 10 0RF phenazopyridine [Pyridium] 200 mg tablet 200 mg PO Q8H 2 Days Qty: 6 0RF cefdinir 300 mg capsule 300 mg PO BID 7 Days Qty: 14 0RF Referrals Follow up/Referrals: David Celestin [Primary Care Provider] - See instructions Instructions Patient Instructions: DI for Acute Abdominal Pain Discharge ED Provider: Kaelyn Keen Adult HPI General Chief complaint: Abdominal Pain Stated complaint: nausea,abdominal pain Time Seen by Provider: 06/19/23 17:02 Mode of Arrival: Ambulatory Source of Information: Patient Limitations: No Limitations Description of Symptoms (Recalled from ER Triage Doc. by RN): pt c/o RUQ pain that radiates to her LUQ. Pt also states she has had some nausea. pt states this has been ongoing since this am. LMP 3wks ago. Related Data Home Medications Medication Instructions Recorded Confirmed etonogestrel 68 mg subdermal subdermal 02/20/21 02/20/21 implant (Nexplanon) Previous Rx's Medication Instructions Recorded ondansetron 4 mg disintegrating 4 mg PO Q8H PRN nausea and 08/29/22 tablet vomiting #10 tabs cefdinir 300 mg capsule 300 mg PO BID 7 days #14 caps 03/19/23 phenazopyridine 200 mg tablet 200 mg PO Q8H pain 2 days #6 tabs 03/19/23 (Pyridium) Allergies Allergy/AdvReac Type Severity Reaction Status Date / Time No Known Allergies Allergy Verified 08/29/22 12:27 [facility] Disclaimer: The information contained in this section may have been updated after the patient was seen, as this information can be updated by other users. Medical History Anxiety Depression Migraine Urinary tract infection Social History Smoking Status: Current every day smoker tobacco type: cigarettes packs per day: 1 second hand exposure: Yes alcohol intake: never substance use type: denies use current occupational status: employed Travel in the last 8 weeks: None household members: family housing: apartment current occupational exposures/hazards: No caffeine: Yes Physical Exam General General appearance: alert and in no apparent distress Medical Decision Making Vital Signs: 06/19/23 16:17 06/19/23 17:23 Temperature 98.6 F 98.4 F Temperature Source Oral Oral Pulse Rate [Radial] 74 84 Respiratory Rate 18 18 Blood Pressure [Right Arm] 133/92 H 129/98 H Blood Pressure Mean [Right Arm] 105 108 Blood Pressure Source [Right Arm] Automatic Cuff Blood Pressure Position [Right Arm] Sitting 02 Sat by Pulse Oximetry 100 99 Oxygen Delivery Method Room Air Lab Data Lab Results 06/19/23 16:57: Urine Color Yellow, Urine Appearance Clear, Urine pH 7.5, Ur Specific [place] 1.020, Urine Protein Trace, Urine Glucose (UA) Negative, Urine Ketones Negative, Urine Blood Trace, Urine Nitrate Negative, Urine Bilirubin Negative, Urine Urobilinogen 1, Ur Leukocyte Esterase Trace, Tst Clinic Negative 06/19/23 17:17: WBC 11.3 H, RBC 5.01, Hgb 15.2, Hct 43.8, MCV 87.3, MCH 30.3, MCHC 34.7, RDW 12.8, Plt Count 269, MPV 7.7, Neut % (Auto) 65.7, Lymph % (Auto) 26.9, [place] % (Auto) 4.9, Eos % (Auto) 1.6, Baso % (Auto) 1.0, Neut # (Auto) 7.4, Lymph # (Auto) 3.0, [place] # (Auto) 0.6, Eos # (Auto) 0.2, Baso # (Auto) 0.1, Sodium 135 L, Potassium 3.9, Chloride 104, Carbon Dioxide 26, Anion Gap 8.9, BUN 10, Creatinine 0.60, Estimated Creat Clear 151, Estimated GFR 124, Est GFR ( Amer) 150, Glucose 94, Calcium 8.6, Total Bilirubin 0.6, AST 31, ALT 22, Alkaline Phosphatase 63, Total Protein 7.6, Albumin 4.4, Globulin 3.2, Albumin/Globulin Ratio 1.4, Lipase 40 06/19/23 17:17 06/19/23 17:17 Orders (Tests/Meds): ED MEDICATIONS Generic Name Dose Route Start Last Admin Trade Name Freq PRN Reason Stop Dose Admin Lactated Ringer's 1,000 mls @ 999 mls/hr 06/19/23 18:00 Lactated Ringer's 1000 Ml Bag IV 06/19/23 19:00 .Q1H1M JOSE ANTONIO Ondansetron HCl 4 mg 06/19/23 17:54 Ondansetron 4mg/2ml Vial IV 06/19/23 17:55 ONCE ONE Sodium Chloride 10 ml 06/19/23 17:12 Sodium Chloride 0.9% 10ml Flush Syringe IV 07/19/23 17:11 NEEDED PRN Maintain IV Site ORDERS Category Date Time Status CT abdomen pelvis w con Stat Cat Scan 06/19/23 17:54 Ordered Complete Blood Count Auto Diff Stat Lab 06/19/23 17:17 Completed Comprehensive Metabolic Panel Stat Lab 06/19/23 17:17 Completed Lipase Stat Lab 06/19/23 17:17 Completed
--- NOTE | 2023-06-19 17:57 | HMH.EDGENADL ---
Discharge Plan Disposition Patient Disposition: Still a Patient Prescriptions Prescriptions: New ondansetron 4 mg tablet,disintegrating 4 mg PO Q6H PRN (Reason: nausea and vomiting) 5 Days Qty: 20 0RF No Action Nexplanon 68 mg implant SUBDERMAL ondansetron 4 mg tablet,disintegrating 4 mg PO Q8H PRN (Reason: nausea and vomiting) Qty: 10 0RF phenazopyridine [Pyridium] 200 mg tablet 200 mg PO Q8H 2 Days Qty: 6 0RF cefdinir 300 mg capsule 300 mg PO BID 7 Days Qty: 14 0RF Referrals Follow up/Referrals: Kristi Church, [Staff Physician] - See instructions David Celestin [Primary Care Provider] - See instructions Activity Restrictions/Add. Instructions Additional Instructions/Restrictions: You have a 3.7 cm right ovarian cyst with some surrounding fluid most likely secondary to hemorrhage or rupture. Please follow-up with Dr. Church and return to the emergency department any significant worsening of her symptoms. No other emergent medical condition identified and specifically no evidence of ovarian torsion at the moment. Clinical Impressions Clinical Impression: Abdominal pain, Nausea & vomiting, Cyst of right ovary Instructions Patient Instructions: DI for Acute Abdominal Pain Discharge ED Provider: Tru Betts General Adult HPI General Chief complaint: Abdominal Pain Stated complaint: nausea,abdominal pain Time Seen by Provider: 06/19/23 17:02 Mode of Arrival: Ambulatory Source of Information: Patient Limitations: No Limitations Description of Symptoms (Recalled from ER Triage Doc. by RN): pt c/o RUQ pain that radiates to her LUQ. Pt also states she has had some nausea. pt states this has been ongoing since this am. LMP 3wks ago. History of Present Illness HPI narrative: Is a 23-year-old female with a history of ovarian cysts no other past medical problems presenting today with what she describes as right upper quadrant abdominal pain that is been radiating to her left upper quadrant and epigastrium. She went to the urgent treatment clinic where they did some basic blood work and sent her to the emergency department for further evaluation and treatment. She denies any changes in urination bowel movements fevers chills or any other symptoms. This not been postprandial nature stopping intermittent in nature as well. Related Data Home Medications Medication Instructions Recorded Confirmed etonogestrel 68 mg subdermal subdermal 02/20/21 02/20/21 implant (Nexplanon) Previous Rx's Medication Instructions Recorded ondansetron 4 mg disintegrating 4 mg PO Q8H PRN nausea and 08/29/22 tablet vomiting #10 tabs cefdinir 300 mg capsule 300 mg PO BID 7 days #14 caps 03/19/23 phenazopyridine 200 mg tablet 200 mg PO Q8H pain 2 days #6 tabs 03/19/23 (Pyridium) ondansetron 4 mg disintegrating 4 mg PO Q6H PRN nausea and 06/19/23 tablet vomiting 5 days #20 tabs Allergies Allergy/AdvReac Type Severity Reaction Status Date / Time No Known Allergies [facility]ergy Verified 08/29/22 12:[facility] Dis[facility]: The information contained in this section may have been updated after the patient was seen, as this information can be updated by other users. Medical History Anxiety Depression Migraine Urinary tract infection Social History Smoking Status: Current every day smoker tobacco type: cigarettes packs per day: 1 second hand exposure: Yes alcohol intake: never substance use type: denies use current occupational status: employed Travel in the last 8 weeks: None household members: family housing: apartment current occupational exposures/hazards: No caffeine: Yes ROS Obtained: Yes All systems reviewed & no additional complaints except as documented Physical Exam General General appearance: alert and in no apparent distress Respiratory Respiratory exam: Present normal lung sounds bilaterally Cardiovascular Cardiovascular exam: Present regular rate Abdominal Exam Abdominal exam: Present soft and tenderness (There is right lower quadrant tenderness palpation there is no right upper quadrant or epigastric tenderness on my exam); Absent distention Neurological Exam Neurological exam: Present alert Medical Decision Making Steven Inquiry Pt receiving controlled substance: No Vital Signs: 06/19/23 16:17 06/19/23 17:23 06/19/23 17:40 Temperature 98.6 F 98.4 F Temperature Source Oral Oral Pulse Rate 77 Pulse Rate [Radial] 74 84 Respiratory Rate 18 18 Blood Pressure 121/78 Blood Pressure [Right Arm] 133/92 H 129/98 H Blood Pressure Mean 86 Blood Pressure Mean [Right Arm] 105 108 Blood Pressure Source [Right Arm] Automatic Cuff Blood Pressure Position [Right Arm] Sitting 02 Sat by Pulse Oximetry 100 99 99 Oxygen Delivery Method Room Air Room Air 06/19/23 17:50 06/19/23 18:00 06/19/23 19:00 Temperature Temperature Source Pulse Rate 68 66 80 Pulse Rate [Radial] Respiratory Rate 20 Blood Pressure 119/71 113/61 117/56 L Blood Pressure [Right Arm] Blood Pressure Mean 85 78 Blood Pressure Mean [Right Arm] Blood Pressure Source [Right Arm] Blood Pressure Position [Right Arm] 02 Sat by Pulse Oximetry 99 98 100 Oxygen Delivery Method Room Air 06/19/23 19:11 06/19/23 19:21 06/19/23 19:30 Temperature Temperature Source Pulse Rate 62 63 61 Pulse Rate [Radial] Respiratory Rate Blood Pressure 103/65 L 118/69 119/64 Blood Pressure [Right Arm] Blood Pressure Mean Blood Pressure Mean [Right Arm] Blood Pressure Source [Right Arm] Blood Pressure Position [Right Arm] 02 Sat by Pulse Oximetry 100 100 100 Oxygen Delivery Method Lab Data Lab results reviewed: Yes I reviewed the patient's lab results. Lab Results 06/19/23 16:57: Urine Color Yellow, Urine Appearance Clear, Urine pH 7.5, Ur Specific [place] 1.020, Urine Protein Trace, Urine Glucose (UA) Negative, Urine Ketones Negative, Urine Blood Trace, Urine Nitrate Negative, Urine Bilirubin Negative, Urine Urobilinogen 1, Ur Leukocyte Esterase Trace, Tst Clinic Negative 06/19/23 17:17: WBC 11.3 H, RBC 5.01, Hgb 15.2, Hct 43.8, MCV 87.3, MCH 30.3, MCHC 34.7, RDW 12.8, Plt Count 269, MPV 7.7, Neut % (Auto) 65.7, Lymph % (Auto) 26.9, [place] % (Auto) 4.9, Eos % (Auto) 1.6, Baso % (Auto) 1.0, Neut # (Auto) 7.4, Lymph # (Auto) 3.0, [place] # (Auto) 0.6, Eos # (Auto) 0.2, Baso # (Auto) 0.1, Sodium 135 L, Potassium 3.9, Chloride 104, Carbon Dioxide 26, Anion Gap 8.9, BUN 10, Creatinine 0.60, Estimated Creat Clear 151, Estimated GFR 124, Est GFR ( Amer) 150, Glucose 94, Calcium 8.6, Total Bilirubin 0.6, AST 31, ALT 22, Alkaline Phosphatase 63, Total Protein 7.6, Albumin 4.4, Globulin 3.2, Albumin/Globulin Ratio 1.4, Lipase 40 06/19/23 17:17 06/19/23 17:17 Orders (Tests/Meds): ED MEDICATIONS Generic Name Dose Route Start Last Admin Trade Name Freq PRN Reason Stop Dose Admin Sodium Chloride 10 ml 06/19/23 17:12 Sodium Chloride 0.9% 10ml Flush Syringe IV 07/19/23 17:11 NEEDED PRN Maintain IV Site Discontinued Medications Generic Name Dose Route Start Last Admin Trade Name Freq PRN Reason Stop Dose Admin Lactated Ringer's 1,000 mls @ 999 mls/hr 06/19/23 18:00 06/19/23 18:02 Lactated Ringer's 1000 Ml Bag IV 06/19/23 19:00 999 mls/hr .Q1H1M JOSE ANTONIO Administration Iopamidol 75 ml 06/19/23 18:15 06/19/23 18:16 Iopamidol-370 (76%);100ml Bottle IV 06/19/23 18:16 75 ml ONCE ONE Administration Ondansetron HCl 4 mg 06/19/23 17:54 06/19/23 18:02 Ondansetron 4mg/2ml Vial IV 06/19/23 17:55 4 mg ONCE ONE Administration Sodium Chloride 10 ml 06/19/23 18:15 06/19/23 18:16 Sodium Chloride 0.9% 10ml Syr (Rad Only) IV 06/19/23 18:16 10 ml ONCE ONE Administration ORDERS Category Date Time Status CT abdomen pelvis w con Stat Cat Scan 06/19/23 17:54 Completed US transvaginal Stat Exams 06/19/23 18:34 Completed Complete Blood Count Auto Diff Stat Lab 06/19/23 17:17 Completed Comprehensive Metabolic Panel Stat Lab 06/19/23 17:17 Completed Lipase Stat Lab 06/19/23 17:17 Completed Medical Decision Narrative: 23-year-old female presents today with from historical standpoint right upper quadrant epigastric discomfort however on my exam she is only tender in the right lower quadrant. She has no tenderness in the right upper quadrant or epigastric for me. Will give IV fluids pain medicine nausea medicine and get a CT scan to further evaluate possible pathologies which would include ovarian pathology such as ovarian cyst rupture ovarian torsion appendicitis terminal ileitis etc. Reassessment 6:[address] scan performed I personally interpreted also with radiology read which shows a right 3 cm adnexal cyst. No other emergent medical condition identified. Reassessment of the patient she is intermittently having severe pain and has persistent right lower quadrant pain. Cannot rule out ovarian torsion radiology also recommended a follow-up transvaginal ultrasound which I have ordered to rule out ovarian torsion. This is unlikely with a 3 cm sized adnexal cyst but certainly within the realm of possibility. I discussed with the patient she is aware and is agreeable to stay further emergency department for this diagnostic test. Reassessment 8:45 PM patient feeling much better. Serial abdominal exams benign ultrasound returned which shows a 3.7 cm adnexal cyst with some surrounding free fluid most likely secondary to hemorrhage or rupture. No evidence of ovarian torsion. Is possible she has intermittent torsion but that is unlikely at this point. She looks very well and is comfortable at the moment. I advised that she follow-up closely with an [facility] doctor referral was made to Dr. Church. She is been advised also to return to the emergency department with any worsening symptoms. She is agreeable this plan discharged in stable condition. Critical Care Critical Care Time Critical Care Time: No
[2023-06-19] MEDS: ONDANSETRON 4MG/2ML VIAL 4 MG IV (18:02)
[2023-06-19] MEDS: LACTATED RINGERS 1000ML 1,000 ML 999 ML IV (18:02)
[2023-06-19] MEDS: IOPAMIDOL-370 (76%);100ML BOTTLE 75 ML IV (18:16)
[2023-06-19] MEDS: SODIUM CHLORIDE 0.9% 10ML SYR (RAD ONLY) 10 ML IV (18:16)
--- NOTE | 2023-06-19 18:34 | US_ITS ---
PROCEDURE INFORMATION: Exam: US Pelvis, Transvaginal Exam date and time: 06/19/2023 7:46 PM Age: 23 years old Clinical indication: Pelvic pain; Additional info: Right adnexal cyst, R/O torsion LABS AND CLINICAL REPORTS: Last menstrual period start date: 06/02/2023 TECHNIQUE: Imaging protocol: Real-time transvaginal pelvic ultrasound with image documentation. Transvaginal imaging was used for better evaluation of the endometrium, adnexa, and/or cervix. COMPARISON: CT ABDOMEN PELVIS W CON 06/19/2023 6:01 PM FINDINGS: Uterus: Uterus measures 6.82 cm x 4.75 cm x 3.79 cm. Anteverted. Endometrium measures 0.5 cm. Fluid evident in the cervix. Right ovary/adnexa: Right ovary measures 4.46 cm x 4.21 cm x 2.54 cm. Right ovarian volume is 24.97 mL. Right ovarian cyst measures 3.1 x 3.7 x 2.1 cm. Normal blood flow. Left ovary/adnexa: Left ovary measures 3.68 cm x 2.68 cm x 1.72 cm. Left ovarian volume is 8.88 mL. Normal blood flow. Intraperitoneal space: Trace fluid in the cul-de-sac. IMPRESSION: 1. Right ovarian cyst measures 3.7 cm. Normal ovarian blood flow bilaterally. 2. Fluid in the cervix.
--- NOTE | 2023-06-19 19:41 | PC.NURSE ---
patient gone to US at this time.
--- NOTE | 2023-06-19 20:13 | INFXCTL.NOTE ---
Patient back in room at this time.
--- NOTE | 2023-06-19 20:26 | PC.NURSE ---
Rounded on patient, no needs voiced at this time.
== END 2023-06-19 20:53 | disposition home or self-care (01) ==
LOC: UTC 16:29 → ER 17:20
PROVIDERS: Nurse Practitioner; Emergency Provider Student in an Organized Health Care Education/Training Program; PCP Pediatrics
DX: R10.11 Right upper quadrant pain (principal); R10.12 Left upper quadrant pain; R11.0 Nausea; R10.13 Epigastric pain; N83.201 Unspecified ovarian cyst, right side; F17.210 Nicotine dependence, cigarettes, uncomplicated
CPT/HCPCS: 74177; 76830; 80053; 81003; 81025; 83690; 85025; 96361; 96374; 99285; J2405; Q9967

== ENCOUNTER 2023-07-14 00:09 | Emergency (ER) | payer OTHER, SELFPAY ==
[2023-07-14] VITALS (11 sets, daily range): BP systolic 85–148; BP diastolic 46–84; PULSE 62–115; RESP 16–24; TEMP 36.7; O2SAT 96–100; BMI 27.3
--- NOTE | 2023-07-14 00:42 | ECG_ITS ---
APPROVED REPORT Exam: Resting ECG HR:79 bpm ECG Measurements Heart Rate 79 AXES AK 169 P 74 QRSd 102 QRS 92 QT 363 T 57 QTc 397 Conclusion Normal rate, sinus rhythm, no significant ST elevation or morphology changes. Normal Sinus rhythm. -Abena Cooper MD Electronically signed by : ABENA COOPER, 07/14/2023 05:58:04
[2023-07-14 00:57] LABS: Ethyl Alcohol 266 mg/dl (0-10)
[2023-07-14 01:02] LABS: Microscopic, Urine URINE MICROSCOPIC (MICROSCOPIC)
[2023-07-14 01:03] LABS: Appearance,Urine CLEAR (Clear); Bilirubin,Urine Negative (Negative); Blood, Urine 3+ (Negative); Color,Urine YELLOW (Yellow); Glucose,Urine (UA) Negative (Negative); Ketones,Urine Negative (Negative); Leukocyte Esterase,Urine Negative (Negative); Nitrate,Urine Negative (Negative); Protein,Urine Negative (Negative); Specific Gravity, Urine <= 1.005 (1.005-1.030); Urobilinogen,Urine 0.2 EU/dl (0.2)
[2023-07-14 01:03] LABS: Acetaminophen < 10 ug/ml (10-30); Salicylate < 1.0 mg/dL (2.0-20.0)
--- NOTE | 2023-07-14 01:11 | HMH.EDGENADL ---
Discharge Plan Disposition Patient Disposition: Home, Self-Care Condition: Fair Chief Complaint: Alcohol Prescriptions Prescriptions: No Action Nexplanon 68 mg implant SUBDERMAL ondansetron 4 mg tablet,disintegrating 4 mg PO Q8H PRN (Reason: nausea and vomiting) Qty: 10 0RF phenazopyridine [Pyridium] 200 mg tablet 200 mg PO Q8H 2 Days Qty: 6 0RF cefdinir 300 mg capsule 300 mg PO BID 7 Days Qty: 14 0RF ondansetron 4 mg tablet,disintegrating 4 mg PO Q6H PRN (Reason: nausea and vomiting) 5 Days Qty: 20 0RF Referrals Follow up/Referrals: David Celestin [Primary Care Provider] - See instructions Activity Restrictions/Add. Instructions Additional Instructions/Restrictions: Please follow-up as discussed with your primary care doctor. Please discuss with them treatment including medication management and counseling for your mood and depressed thoughts. At this time psychiatry has determined you do not require inpatient care however return to the emergency department if you have thoughts of harming yourself or others, hallucinations, or other symptoms that are concerning to you. Clinical Impressions Clinical Impression: Depression with suicidal ideation, Alcohol intoxication Instructions Patient Instructions: Alcohol and Stress: There are Safer Ways to [place], DI for Suicidal Ideation-Adult Discharge ED Provider: Abena Cooper General Adult HPI General Chief complaint: Alcohol Stated complaint: Intoxicated Time Seen by Provider: 07/14/23 00:27 Mode of Arrival: Wheelchair Source of Information: Patient Limitations: No Limitations Description of Symptoms (Recalled from ER Triage Doc. by RN): patient to ED in wheelchair for alcohol intoxication. Pt states that she had 4 shots of liquor, and then got into a verbal altercation with friends. She was later dropped off at friends house where she started punching a fence. Patient has verbalized that she doesnt want to be here anymore, and hates her life. Patient states that she has a plan to harm herelf, but doesnt want to at the moment. History of Present Illness HPI narrative: 23-year-old female with previous medical history of PTSD presents with alcohol intoxication and suicidal ideation. Patient appears intoxicated and her sister is at the bedside. Patient states she had 4 shots of liquor and an unspecified amount of tequila and then states that she became emotional and began punching coulter and crying and yelling at her friends. She stated she wanted to by alcohol overdose. She reports she has had a prior suicide attempt with a gun that resulted in a prolonged admission to the [facility] so she did not want to use a gun again but did want to drink herself to . For this reason her sister brought her to the emergency department after her friends dropped her off at her sister's house. Related Data Home Medications Medication Instructions Recorded Confirmed etonogestrel 68 mg subdermal subdermal 02/20/21 02/20/21 implant (Nexplanon) Previous Rx's Medication Instructions Recorded ondansetron 4 mg disintegrating 4 mg PO Q8H PRN nausea and 08/29/22 tablet vomiting #10 tabs cefdinir 300 mg capsule 300 mg PO BID 7 days #14 caps 03/19/23 phenazopyridine 200 mg tablet 200 mg PO Q8H pain 2 days #6 tabs 03/19/23 (Pyridium) ondansetron 4 mg disintegrating 4 mg PO Q6H PRN nausea and 06/19/23 tablet vomiting 5 days #20 tabs Allergies Allergy/AdvReac Type Severity Reaction Status Date / Time No Known Allergies Allergy Verified 08/29/22 12:27 [facility] Disclaimer: The information contained in this section may have been updated after the patient was seen, as this information can be updated by other users. Medical History Anxiety Depression Migraine Urinary tract infection Social History Smoking Status: Current every day smoker tobacco type: cigarettes packs per day: 1 second hand exposure: Yes alcohol intake: never substance use type: denies use current occupational status: employed Travel in the last 8 weeks: None household members: family housing: apartment current occupational exposures/hazards: No caffeine: Yes ROS Obtained: Yes All systems reviewed & no additional complaints except as documented Physical Exam General General appearance: alert and appears intoxicated Comment: Tearful Head Head exam: atraumatic, normocephalic and normal inspection Eye Eye exam: Present normal appearance, PERRL and EOMI ENT ENT exam: Present normal exam, normal oropharynx, mucous membranes moist and normal external ear exam Neck Neck exam: Present normal inspection, full ROM and trachea midline; Absent meningismus or lymphadenopathy Chest Chest inspection: Present normal inspection and symmetric chest wall rise; Absent tenderness Respiratory Respiratory exam: Present normal lung sounds bilaterally; Absent respiratory distress Cardiovascular Cardiovascular exam: Present regular rate and normal rhythm; Absent JVD Abdominal Exam Abdominal exam: Present soft and normal bowel sounds; Absent distention, tenderness or guarding Extremities Exam Extremities exam: Present full ROM, normal capillary refill and other (Superficial abrasions to the right PIPs but no tenderness to palpation of the hands throughout. No swelling or deformity.); Absent calf tenderness Back Exam Back exam: Present normal inspection; Absent tenderness Neurological Exam Neurological exam: Present alert and oriented X3 Psychiatric Psychiatric exam: Present agitated and suicidal ideation; Absent homicidal ideation Skin Skin exam: Present warm, dry, intact and normal color Lymphatic Lymphatic Findings: no adenopathy Medical Decision Making Steven Inquiry Pt receiving controlled substance: No Vital Signs: 07/14/23 00:11 07/14/23 01:24 07/14/23 01:30 Temperature 98.0 F Temperature Source Oral Pulse Rate 62 83 Pulse Rate [Left] 115 H Respiratory Rate 24 16 Blood Pressure 102/52 L 91/64 L Blood Pressure [Right Arm] 148/84 H Blood Pressure Mean 68 72 Blood Pressure Mean [Right Arm] 105 Blood Pressure Source [Right Arm] Automatic Cuff Blood Pressure Position [Right Arm] Sitting 02 Sat by Pulse Oximetry 99 100 99 Oxygen Delivery Method Room Air Room Air 07/14/23 02:00 07/14/23 02:30 07/14/23 03:30 Temperature Temperature Source Pulse Rate 88 87 89 Pulse Rate [Left] Respiratory Rate Blood Pressure 93/53 L 100/56 L 90/46 L Blood Pressure [Right Arm] Blood Pressure Mean 66 66 54 Blood Pressure Mean [Right Arm] Blood Pressure Source [Right Arm] Blood Pressure Position [Right Arm] 02 Sat by Pulse Oximetry 100 100 98 Oxygen Delivery Method 07/14/23 04:00 07/14/23 04:30 07/14/23 05:00 Temperature Temperature Source Pulse Rate 90 94 H 84 Pulse Rate [Left] Respiratory Rate 18 20 18 Blood Pressure 92/50 L 85/47 L 88/52 L Blood Pressure [Right Arm] Blood Pressure Mean 58 54 62 Blood Pressure Mean [Right Arm] Blood Pressure Source [Right Arm] Blood Pressure Position [Right Arm] 02 Sat by Pulse Oximetry 98 96 97 Oxygen Delivery Method Room Air Room Air Room Air 07/14/23 05:13 Temperature Temperature Source Pulse Rate 102 H Pulse Rate [Left] Respiratory Rate 20 Blood Pressure 105/58 L Blood Pressure [Right Arm] Blood Pressure Mean 70 Blood Pressure Mean [Right Arm] Blood Pressure Source [Right Arm] Blood Pressure Position [Right Arm] 02 Sat by Pulse Oximetry 97 Oxygen Delivery Method Room Air Lab Data Lab Results 07/14/23 00:30: Serum HCG, Qual Negative, Salicylates < 1.0 L, Acetaminophen < 10 L, Plasma/Serum Alcohol 266 H 07/14/23 00:57: Urine Color Yellow, Urine Appearance Clear, Urine pH 6.0, Ur Specific [place] <= 1.005, Urine Protein Negative, Urine Glucose (UA) Negative, Urine Ketones Negative, Urine Blood 3+, Urine Nitrate Negative, Urine Bilirubin Negative, Urine Urobilinogen 0.2, Ur Leukocyte Esterase Negative, Urine RBC Occasional, Urine WBC 3-5, Ur Squamous Epith Cells 3-5, Urine Bacteria Trace, Urine Yeast Occasional, Urine Opiates Screen Negative, Urine Methadone Screen Negative, Ur Barbituates Screen Negative, Ur Phencyclidine Scrn Negative, Ur Amphetamines Screen Negative, U Benzodiazepines Scrn Negative, Urine Cocaine Screen Negative, U Marijuana (THC) Screen Negative Orders (Tests/Meds): ED MEDICATIONS Discontinued Medications Generic Name Dose Route Start Last Admin Trade Name Maciejq PRN Reason Stop Dose Admin Sodium Chloride 1,000 mls @ 999 mls/hr 07/14/23 01:16 07/14/23 01:18 Sod Chlor 0.9% 1000ml Bag IV 07/14/23 02:16 999 mls/hr .Q1H1M ONE Administration Ondansetron HCl 4 mg 07/14/23 01:16 07/14/23 01:18 Ondansetron 4mg/2ml Vial IV 07/14/23 01:17 4 mg ONCE ONE Administration ORDERS Category Date Time Status Acetaminophen Stat Lab 07/14/23 00:30 Completed Ethanol [Ethyl Alcohol] Stat Lab 07/14/23 00:30 Completed Salicylate Stat Lab 07/14/23 00:30 Completed Serum [HCG Qualitative, Serum] Stat Lab 07/14/23 00:30 Completed UA [Urinalysis and Microscopic] Stat Lab 07/14/23 00:57 Completed UDS [Drug Screen,Urine] Stat Lab 07/14/23 00:57 Completed ECG Data Tracing #1: I reviewed this ECG and interpreted as documented below: ECG initial impression date: 07/14/23 ECG initial impression time: 01:00 ECG normal with no acute: arrhythmias, ischemia, conduction abnormalities, chamber hypertrophy Normal Sinus Rhythm: Yes Medical Decision Narrative: Presentation concerning for suicidal ideation and alcohol intoxication. Also considered intoxication from coingestants so obtain UDS, aspirin, salicylates and considered test needed for psychiatric clearance obtained ethanol level, test, EKG, urinalysis. For her comfort gave LR and Zofran. At this time patient is voluntarily presenting for psychiatric treatment so involuntary hold not indicated however patient does represent a harm to herself so discussed this with nursing staff and patient is not to leave prior to psychiatric evaluation. EKG I independently reviewed and interpreted consistent with normal sinus rhythm. Labs independently reviewed and interpreted showed ethanol level of 266. Negative acetaminophen and salicylates and UDS. No UTI. Patient was allowed to sober in the emergency department until medically cleared for psychiatric evaluation. Patient had a psychiatric evaluation with the [facility] by video call and psychiatric provider determined she did not meet criteria for inpatient care. Patient has been determined to be appropriate for discharge at this time. Discussed this with patient and provided strict return precautions including thoughts of harming herself or others, hallucinations, or other concerns. She understands and agrees to monitor symptoms at home and follow-up with her provider outpatient. Discharged stable with her mother after ambulating well in the emergency department. Critical Care Critical Care Time Critical Care Time: No
[2023-07-14 01:15] LABS: Amphetamine/Metha Screen,Urine Negative ng/ml (<1000)
[2023-07-14 01:17] LABS: Bacteria,Urine Trace /lpf; Cannabinoid Screen,Urine Negative ng/ml (<50); RBC,Urine Occasional #/hpf (0-3); Yeast,Urine Occasional /lpf
[2023-07-14 01:18] LABS: Cocaine Screen,Urine Negative ng/ml (<300); Methadone Screen,Urine Negative ng/ml (<300)
[2023-07-14] MEDS: 0.9 % SODIUM CHLORIDE 1000ML 1,000 ML 999 ML IV (01:18)
[2023-07-14] MEDS: ONDANSETRON 4MG/2ML VIAL 4 MG IV (01:18)
[2023-07-14 01:19] LABS: Opiate Screen,Urine Negative ng/ml (<300)
[2023-07-14 01:20] LABS: Phencyclidine Screen,Urine Negative ng/ml (<25)
[2023-07-14 01:24] LABS: Barbiturates Screen,Urine Negative ng/ml (<200)
[2023-07-14 01:25] LABS: HCG Qualitative, Serum Negative (Negative)
[2023-07-14 01:27] LABS: Benzodiazepines Screen,Urine Negative ng/ml (<200)
--- NOTE | 2023-07-14 05:55 | PC.NURSE ---
Called and spoke with Trena art @ [facility] and faxed out patients face sheet and lab results, ekg
--- NOTE | 2023-07-14 06:24 | PC.NURSE ---
Pt talking with Counselor at the [facility]. CR
--- NOTE | 2023-07-14 07:08 | PC.NURSE ---
Trena @ the [facility] called back and said that patient didn't meet criteria for inpatient
== END 2023-07-14 07:51 | disposition home or self-care (01) ==
PROVIDERS: Emergency Provider Emergency Medicine; PCP Pediatrics
DX: R45.851 Suicidal ideations (principal); F33.9 Major depressive disorder, recurrent, unspecified; F10.929 Alcohol use, unspecified with intoxication, unspecified; F17.210 Nicotine dependence, cigarettes, uncomplicated
CPT/HCPCS: 80307; 80329; 81001; 84703; 93005; 96361; 96374; 99285; J2405

== ENCOUNTER 2023-09-22 00:20 | Emergency (ER) | payer SELFPAY ==
[2023-09-22] VITALS (7 sets, daily range): BP systolic 102–136; BP diastolic 64–85; PULSE 59–107; RESP 16–22; TEMP 36.6–36.9; O2SAT 97–100; BMI 25.7
--- NOTE | 2023-09-22 00:14 | ECG_ITS ---
APPROVED REPORT Exam: Resting ECG HR:112 bpm ECG Measurements Heart Rate 112 AXES OR 145 P 117 QRSd 97 QRS 93 QT 343 T 174 QTc 409 Conclusion SINUS TACHYCARDIA ARM LEADS REVERSED [INVERTED P AND QRS IN I] ABNORMAL RHYTHM ECG UNCONFIRMED REPORT Electronically signed by : DAYO PETER, 09/22/2023 06:45:14
--- NOTE | 2023-09-22 00:24 | XR_ITS ---
PROCEDURE INFORMATION: Exam: XR Chest Exam date and time: 09/22/2023 12:46 AM Age: 23 years old Clinical indication: Pain; Chest pressure; Additional info: Soa/cp TECHNIQUE: Imaging protocol: Radiologic exam of the chest. Views: 1 view. COMPARISON: CR XR CHEST PORTABLE 11/21/2021 4:16 PM FINDINGS: Lungs: The lungs are adequately inflated. No focal consolidation. Pleural spaces: No pneumothorax or pleural effusion. Heart/Mediastinum: The cardiomediastinal silhouette has normal size and contour. Bones/joints: No displaced fracture. Intraperitoneal space: The visualized abdomen is unremarkable. IMPRESSION: No acute cardiopulmonary disease.
--- NOTE | 2023-09-22 00:31 | HMH.EDCP ---
Discharge Plan Disposition Patient Disposition: Home, Self-Care Condition: Good Prescriptions Prescriptions: No Action Nexplanon 68 mg implant SUBDERMAL escitalopram oxalate [Lexapro] 20 mg tablet 20 mg PO DAILY Qty: 30 2RF Rx Instructions: Take 1/2 tablet daily for one week, then increase to 1 tablet daily. prazosin 1 mg capsule 1 mg PO HS Qty: 30 2RF ondansetron 4 mg tablet,disintegrating 4 mg PO Q6H PRN (Reason: nausea and vomiting) 5 Days Qty: 20 0RF Referrals Follow up/Referrals: David Celestin [Primary Care Provider] - See instructions Activity Restrictions/Add. Instructions Additional Instructions/Restrictions: You were evaluated in the ER today. You are appropriate for discharge at this time. Avoid caffeine intake to avoid symptoms like this in the future. Please make an appointment with your primary care physician for reevaluation in a few days and to discuss anxiety management. Drink plenty of water. Return to the ER with any new, worsening, or otherwise concerning symptoms. Clinical Impressions Clinical Impression: Chest pain, Anxiety Discharge ED Provider: Ramiro Balbuena General Chief Complaint: Chest Pain Stated Complaint: Chest Pain Time Seen by Provider: 09/22/23 00:23 Mode of Arrival: Wheelchair Source of Information: Patient Limitations: No Limitations Description of Symptoms (Recalled from ER Triage Doc. by RN): 23 F presents to the ER c/o severe right sided chest pain, heart palpitations, and severe anxiety. Patient believes this is all r/t drinking 2 tweaker energy shots 2 hours prior to arrival; however, these symptoms began 30 minutes before arrival. Patient is grimacing with pain and sitting in a position while riding in the wheelchair. Attending provider immediatley at bedside. History of Present Illness HPI narrative: 23-year-old female history of anxiety presents to the ER with concerns of right-sided chest pain radiating through to her back, heart palpitations, anxiety. Patient states she had to tweak her energy shots today. Her last 1 was 2 hours prior to arrival. Each of these contains 275 mg of caffeine. This is approximately double the amount she normally takes in a day. Patient states her chest pain onset approximately 30 minutes prior to arrival. She reports they were at a bar and things became tense which shot up her heart rate and then her chest pain started. Patient has not been drinking tonight, she was the designated driver/merchandiser. She denies use of any other illicit substances. Patient states she has been seen for chest pain previously but does not have any known cardiac problems. She is supposed to be on anxiety medications but does not take any. Denies other associated symptoms at this time. Related Data Home Medications Medication Instructions Recorded Confirmed etonogestrel 68 mg subdermal subdermal 02/20/21 09/03/23 implant (Nexplanon) Previous Rx's Medication Instructions Recorded ondansetron 4 mg disintegrating 4 mg PO Q6H PRN nausea and 06/19/23 tablet vomiting 5 days #20 tabs escitalopram oxalate 20 mg tablet 20 mg PO DAILY #30 tabs 07/19/23 (Lexapro) prazosin 1 mg capsule 1 mg PO HS #30 caps 07/19/23 Allergies Allergy/AdvReac Type Severity Reaction Status Date / Time No Known Allergies Allergy Verified 09/03/23 08:30 [facility] Disclaimer: The information contained in this section may have been updated after the patient was seen, as this information can be updated by other users. Medical History Depression Anxiety Urinary tract infection Migraine Social History Smoking Status: Current every day smoker tobacco type: cigarettes packs per day: 1 second hand exposure: Yes alcohol intake: never substance use type: denies use current occupational status: employed Travel in the last 8 weeks: None household members: family housing: apartment current occupational exposures/hazards: No caffeine: Yes ROS Obtained: Yes All systems reviewed & no additional complaints except as documented Constitutional Constitutional: Denies chills, Denies fever(s), Denies headache(s) and Denies weakness Eyes Eyes: Denies change in vision ENT Ears, Nose, Mouth, and Throat: Denies dizziness, Denies headache(s), Denies nasal congestion and Denies sore throat Cardiovascular Cardiovascular: Reports chest pain, Denies dyspnea and Denies leg edema Respiratory Respiratory: Denies cough and Denies dyspnea Gastrointestinal Gastrointestingal: Denies constipation, diarrhea, nausea or vomiting Genitourinary Female Genitourinary: Denies dysuria Musculoskeletal Musculoskeletal: Denies arthralgias, Denies myalgias, Denies numbness and Denies tingling Integumentary/Breasts Skin/Breast: Denies change in pigmentation Neurologic Neurologic: Denies dizziness, Denies headache(s), Denies numbness, Denies tingling and Denies weakness Physical Exam General General appearance: alert and in no apparent distress Head Head exam: atraumatic and normocephalic Eye Eye exam: Present PERRL and EOMI ENT ENT exam: Present mucous membranes moist Neck Neck exam: Present normal inspection and full ROM Chest Chest inspection: Present symmetric chest wall rise Respiratory Respiratory exam: Present normal lung sounds bilaterally; Absent respiratory distress, wheezes or stridor Cardiovascular Cardiovascular exam: Present normal rhythm and tachycardia Abdominal Exam Abdominal exam: Present soft; Absent distention, tenderness, guarding or rebound Extremities Exam Extremities exam: Present full ROM Neurological Exam Neurological exam: Present alert and oriented X3; Absent motor sensory deficit Psychiatric Psychiatric exam: Present normal affect and anxious (But able to be calmed) Skin Skin exam: Present warm and dry HEART Score HEART Score HEART Score assessment performed?: Yes History (anamnesis): Slightly suspicious ECG: Non-specific disturbance Age: <45 years Risk factors: No known risk factors Troponin: </= normal limit HEART Score: 1 Critical Care Critical Care Time Critical Care Time: No Medical Decision Making Steven Inquiry Pt receiving controlled substance: No Vital Signs Vital Signs: 09/22/23 00:21 09/22/23 00:30 09/22/23 00:43 Temperature 98.4 F Temperature Source Axillary Pulse Rate 102 H 100 H Pulse Rate [Left] 107 H Respiratory Rate 22 20 Blood Pressure 136/81 Blood Pressure [Right Arm] 129/85 Blood Pressure Mean Blood Pressure Mean [Right Arm] 99 Blood Pressure Source [Right Arm] Automatic Cuff Blood Pressure Position [Right Arm] Sitting 02 Sat by Pulse Oximetry 100 100 Oxygen Delivery Method Room Air Room Air 09/22/23 01:00 09/22/23 01:30 09/22/23 02:00 Temperature Temperature Source Pulse Rate 83 59 L 60 Pulse Rate [Left] Respiratory Rate 16 20 18 Blood Pressure 122/74 102/68 L 102/69 L Blood Pressure [Right Arm] Blood Pressure Mean 84 Blood Pressure Mean [Right Arm] Blood Pressure Source [Right Arm] Blood Pressure Position [Right Arm] 02 Sat by Pulse Oximetry 100 99 100 Oxygen Delivery Method Room Air Room Air Lab Data Labs: Lab Results 09/22/23 00:23: WBC 13.8 H, RBC 4.55, Hgb 13.3, Hct 40.0, MCV 87.8, MCH 29.2, MCHC 33.3, RDW 12.9, Plt Count 378, MPV 7.5, Neut % (Auto) 63.9, Lymph % (Auto) 28.7, [place] % (Auto) 5.8, Eos % (Auto) 1.0, Baso % (Auto) 0.6, Neut # (Auto) 8.8 H, Lymph # (Auto) 4.0, [place] # (Auto) 0.8, Eos # (Auto) 0.1, Baso # (Auto) 0.1, D-Dimer < 0.25, Sodium 136, Potassium 3.3 L, Chloride 107, Carbon Dioxide 20 L, Anion Gap 12.3, BUN 12, Creatinine 0.90, Estimated Creat Clear 101, Estimated GFR 78, Est GFR ( Amer) 94, Glucose 96, Calcium 9.0, Total Bilirubin 0.8, AST 28, ALT 25, Alkaline Phosphatase 64, Troponin I < 0.01, Total Protein 7.4, Albumin 4.3, Globulin 3.1, Albumin/Globulin Ratio 1.4, Serum HCG, Qual Negative 09/22/23 02:08: Troponin I < 0.01 09/22/23 00:23 09/22/23 00:23 Response Orders (Tests/Meds): ED MEDICATIONS Discontinued Medications Generic Name Dose Route Start Last Admin Trade Name Freq PRN Reason Stop Dose Admin Hydroxyzine Pamoate 50 mg 09/22/23 00:37 09/22/23 00:47 Hydroxyzine Pamoate 25mg Capsule PO 09/22/23 00:38 50 mg ONCE ONE Administration Lactated Ringer's 1,000 mls @ 999 mls/hr 09/22/23 00:25 09/22/23 00:32 Lactated Ringer's 1000 Ml Bag IV 09/22/23 01:25 999 mls/hr .Q1H1M ONE Administration Potassium Chloride 20 meq 09/22/23 01:11 09/22/23 01:34 Potassium Chloride 20meq Tab PO 09/22/23 01:12 20 meq ONCE ONE Administration ORDERS Category Date Time Status CXR --portable [XR chest portable] Stat Exams 05/12/24 00:24 Taken CBC w/Auto Diff [Complete Blood Count Auto Diff] Stat Lab 09/22/23 00:23 Completed CMP [Comprehensive Metabolic Panel] Stat Lab 09/22/23 00:23 Completed D-Dimer Stat Lab 09/22/23 00:23 Completed HCG Qualitative, Serum Stat Lab 09/22/23 00:23 Completed Troponin I Q3H Lab 09/22/23 02:08 Completed Troponin I Q3H Lab 09/22/23 06:30 Ordered Troponin I Stat Lab 09/22/23 00:23 Completed MDM Narrative Medical Decision Narrative: In summary, 23-year-old female presents to the ER with concerns of chest pain, palpitations in the setting of high caffeine intake. Differential diagnosis includes but is not limited to ACS, panic attack, arrhythmia, side effects of caffeine, PE. On initial evaluation patient is hemodynamically stable though she is tachycardic, he is afebrile, alert, oriented, she is anxious but able to be calm and, easily redirected. Cardiopulmonary exam reassuring, no peripheral edema. Based on the above concerns, appropriate workup including cardiac workup, chest x-ray, D-dimer were ordered. EKG personally interpreted demonstrates sinus tachycardia, rate 112, NE and QT normal, right axis deviation, no STEMI. Chest x-ray personally interpreted demonstrates no acute intrathoracic abnormality, see radiology read for final interpretation. Labs personally reviewed demonstrate mild leukocytosis, no anemia, trace hypokalemia, patient is receiving oral repletion, D-dimer undetectably low at less than 0.25, reassuring against PE, initial troponin undetectably low at less than 0.01, test negative. Patient received IV fluids and hydroxyzine in the ER. On reassessment she has had improvement of symptoms. She continues to be stable. She was placed in the ED observation at 0120 for serial troponins to rule out evolving IL and to preclude unnecessary admission. While in ED observation patient was on the monitor, she did not have any abnormalities in her vitals, her heart rate steadily improved, no findings of arrhythmia, she did not have any recurrence of her chest pain. Symptoms have resolved. Repeat troponin also undetectably low at less than 0.01. Patient is appropriate for discharge at this time. Patient was given instructions on symptomatic management, follow up instructions, and return precautions for the emergency department. Patient indicated understanding and was discharged in stable condition. Total time in ED observation: 1 hour 28 minutes
[2023-09-22] MEDS: LACTATED RINGERS 1000ML 1,000 ML 999 ML IV (00:32)
[2023-09-22 00:34] LABS: Chloride 107 mmol/L (98-107); Potassium 3.3 mmoL/L (3.5-5.1); Sodium 136 mmol/L (136-145)
[2023-09-22 00:37] LABS: Alanine Aminotransferase 25 U/L (12-78); Albumin Level 4.3 g/dl (3.5-5.0); Albumin/Globulin Ratio 1.4 (1.1-1.8); Alkaline Phosphatase 64 U/L (38-126); Anion Gap 12.3 mEq/L (5-15); Aspartate Amino Transferase 28 U/L (14-36); Bilirubin,Total 0.8 mg/dl (0.2-1.3); Blood Urea Nitrogen 12 mg/dl (7-17); Carbon Dioxide 20 mmol/L (22.0-30.0); Creatinine Clearance Estimated 101 mL/min (50-200); Estimated Glomerular Filt Rate 78 ml/min (>60); GFR (African American) 94 ML/MIN (>60); Globulin 3.1 g/dL (1.3-3.2); Total Protein,Serum 7.4 g/dl (6.3-8.2)
[2023-09-22 00:38] LABS: Glucose 96 mg/dl (74-100)
[2023-09-22 00:39] LABS: Basophils # 0.1 K/mm3 (0-0.2); Basophils % 0.6 % (0.1-2.0); Eosinophils # 0.1 K/mm3 (0.0-0.4); HCG Qualitative, Serum Negative (Negative); Hemoglobin 13.3 g/dL (12.2-16.2); Lymphocytes % 28.7 % (10-50); Mean Corpuscular HGB Conc 33.3 g/dL (31.8-35.4); Mean Corpuscular Hemoglobin 29.2 pg (27.0-31.2); Mean Corpuscular Volume 87.8 fl (81-99); Mean Platelet Volume 7.5 fl (7.4-10.4); Monocytes # 0.8 K/mm3 (0.1-1.0); Monocytes % 5.8 % (1.7-9.3); Neutrophils # 8.8 K/mm3 (1.8-7.8); Neutrophils % 63.9 % (37.0-80.0); Platelet Count 378 K/mm3 (142-424); Red Blood Count 4.55 M/mm3 (4.20-5.40); Red Cell Distribution Width 12.9 % (11.5-17.5); White Blood Count 13.8 K/mm3 (4.8-10.8)
[2023-09-22 00:47] LABS: D-Dimer < 0.25 ug/mL (0.0-0.5)
[2023-09-22] MEDS: hydrOXYzine pamoate 25MG CAPSULE 50 MG PO (00:47)
[2023-09-22 00:50] LABS: Troponin I < 0.01 ng/ml (0.00-0.034)
[2023-09-22] MEDS: POTASSIUM CHLORIDE 20MEQ TAB 20 MEQ PO (01:34)
[2023-09-22 02:33] LABS: Troponin I < 0.01 ng/ml (0.00-0.034)
== END 2023-09-22 02:50 | disposition home or self-care (01) ==
PROVIDERS: Emergency Provider Emergency Medicine; PCP Pediatrics
DX: R07.9 Chest pain, unspecified (principal); R00.0 Tachycardia, unspecified; F41.9 Anxiety disorder, unspecified; E87.6 Hypokalemia; F17.210 Nicotine dependence, cigarettes, uncomplicated
CPT/HCPCS: 71045; 80053; 84484; 84703; 85025; 85378; 93005; 96360; 99284

== ENCOUNTER 2024-02-07 15:34 | Emergency (ER) | payer MEDICAID, SELFPAY ==
[2024-02-07 15:50] VITALS: BP 130/81; PULSE 81; RESP 19; TEMP 36.9; O2SAT 100; BMI 25.7
--- NOTE | 2024-02-07 15:55 | EXP.UTC ---
Discharge Plan Disposition Patient Disposition: Home, Self-Care Condition: Good Prescriptions Prescriptions: New ondansetron 4 mg tablet,disintegrating 4 mg PO Q8H PRN (Reason: nausea and vomiting) Qty: 10 0RF Referrals Follow up/Referrals: David Celestin [Primary Care Provider] - See instructions Activity Restrictions/Add. Instructions Additional Instructions/Restrictions: *Monitor Temp, Over the counter Motrin or Tylenol as directed/as needed Tylenol every 4 hours and Motrin every 6 hours (as long as your family doctor has told you that you can take it) for fever or pain. and straight to ER if unable to lower temp less than 101.0 after medication given *Warm salt water gargles may help to soothe the throat *Throat Lozenges? *Warm fluids like tea with honey may help to soothe the throat? *Sleep elevated *Humidifier/Vaporizer *Flonase 2 sprays in each nostril daily but be aware that it may take 2-3 days before you notice improvement *Bromfed may cause drowsiness. Know how it effects you (your child) before driving, caring for small child, or sending your child to school. Not other antihistamines/allergy medications while taking bromfed Your throat swab was sent for culture. Those results are typically sent to your primary care. Be sure to follow up in 2-3 days with your family doctor/primary care physician if no improvement so they can review those result and treat if necessary. If you don?t have a primary care doctor, I recommend you get one but in the mean time, you will have to return to a walk in clinic Follow up IMMEDIATELY for new or worsening symptoms or no Noticeable improvement over the next 48-72 hours. 911 for difficulty breathing or swallowing You were tested for today for Upper Respiratory Panel with COVID19 your test result should be back in the next 24 hours, you may check your results on the [facility] [employer] [facility] Portal Clinical Impressions Clinical Impression: Viral syndrome Stand Alone Forms Stand Alone Forms: Work/School Release Instructions Patient Instructions: DI for Viral Syndrome Print Language Print Language: Northern Irish Discharge ED Provider: Kaelyn Keen [facility] [place] General Stated complaint: body aches, nausea, dizziness Time Seen by Provider: 02/07/24 15:55 History of Present Illness Provider Complaint: Patient states that she has been having body aches, chills, nausea, diarrhea and at times feeling dizzy States that flu and COVID has been going around at the daycare and she is worried that she may have COVID or flu Related Data Previous Rx's ?Medication ?Instructions ?Recorded ondansetron 4 mg disintegrating 4 mg PO Q8H PRN nausea and 02/07/24 tablet vomiting #10 tabs Allergies Allergy/AdvReac Type Severity Reaction Status Date / Time No Known Allergies Allergy Verified 09/03/23 08:30 [facility] Disclaimer: The information contained in this section may have been updated after the patient was seen, as this information can be updated by other users. Medical History Depression Anxiety Urinary tract infection Migraine Social History Smoking Status: Current every day smoker tobacco type: cigarettes packs per day: 1 second hand exposure: Yes alcohol intake: never substance use type: denies use current occupational status: employed Travel in the last 8 weeks: None household members: family housing: apartment current occupational exposures/hazards: No caffeine: Yes ROS Obtained: Yes All systems reviewed & no additional complaints except as documented and Yes Systems reviewed as appropriate & no additional complaints except as documented Constitutional Constitutional: Reports system reviewed and no additional complaints, except as documented, Reports as per HPI, Reports body ache, Reports chills, Reports fatigue and Reports headache(s) ENT Ears, Nose, Mouth, and Throat: Reports system reviewed and no additional complaints, except as documented, Reports as per HPI, Reports dizziness and Reports headache(s) Cardiovascular Cardiovascular: Reports system reviewed and no additional complaints, except as documented and Reports as per HPI Respiratory Respiratory: Reports system reviewed and no additional complaints, except as documented and Reports as per HPI Gastrointestinal Gastrointestingal: Reports system reviewed and no additional complaints, except as documented and as per HPI Neurologic Neurologic: Reports dizziness and Reports headache(s) Endocrine Endocrine: Reports fatigue Physical Exam General General appearance: alert and in no apparent distress ENT ENT exam: Present mucous membranes moist Expanded ENT Exam Nose exam: Absent sinus tenderness Throat exam: Present normal inspection Respiratory Respiratory exam: Present normal lung sounds bilaterally; Absent respiratory distress or wheezes Cardiovascular Cardiovascular exam: Present regular rate, normal rhythm and normal heart sounds Abdominal Exam Abdominal exam: Present soft and normal bowel sounds; Absent distention, tenderness or guarding Neurological Exam Neurological exam: Present alert, oriented X3 and normal gait Medical Decision Making Medical Records Screening: Per USPSTF and CDC recommendations, given the prevalence of disease in our region, it is our hospital?s policy to screen for HIV and viral Hepatitis for all patients aged 18 and over and those with ongoing risk factors. Steven Inquiry Pt receiving controlled substance: No Steven was queried for this patient: No Lab Data Lab results reviewed: Yes I reviewed the patient's lab results.
[2024-02-07 16:10] VITALS: BP 130/81; PULSE 81; RESP 19; TEMP 36.9; O2SAT 100
[2024-02-07 16:10] LABS: UTC Influenza A Antigen Negative (Negative); UTC Influenza B Antigen Negative (Negative)
[2024-02-07 16:18] LABS: Adenovirus,PCR Not Detected (NotDetected); Bordetella Pertussis Not Detected (NotDetected); Chlamydophila Pneumoniae, PCR Not Detected (NotDetected); Coronavirus 19, PCR Not Detected (NotDetected); Coronavirus 229E Not Detected (NotDetected); Coronavirus NL63 Not Detected (NotDetected); Coronavirus OC43 Not Detected (NotDetected); Coronovirus HKU1,PCR Not Detected (NotDetected); Human Metapneumovirus Not Detected (NotDetected); Influenza A, PCR Not Detected (NotDetected); Influenza AH1, 2009 Not Detected (NotDetected); Influenza AH1, PCR Not Detected (NotDetected); Influenza AH3,PCR Not Detected (NotDetected); Influenza B, PCR Not Detected (NotDetected); Mycoplasma Pneumoniae, PCR Not Detected (NotDetected); Parainfluenza 1, PCR Not Detected (NotDetected); Parainfluenza 2, PCR Not Detected (NotDetected); Parainfluenza 3, PCR Not Detected (NotDetected); Parainfluenza 4, PCR Not Detected (NotDetected); Respiratory Syncytial Virus Not Detected (NotDetected); Rhinovirus/Enterovirus Not Detected (NotDetected)
== END 2024-02-07 16:13 | disposition home or self-care (01) ==
PROVIDERS: Emergency Provider Nurse Practitioner; PCP Pediatrics
DX: R11.0 Nausea (principal); R19.7 Diarrhea, unspecified; M79.18 Myalgia, other site; B34.9 Viral infection, unspecified
CPT/HCPCS: 87265; 87486; 87581; 87632; 87635; 87804; 99212; 99214; G0463

== ENCOUNTER 2024-04-26 11:31 | Emergency (ER) | payer BC, SELFPAY ==
--- NOTE | 2024-04-26 13:15 | EXP.UTC ---
Discharge Plan Disposition Patient Disposition: Home, Self-Care Condition: Good Prescriptions Prescriptions: New azithromycin [Zithromax] 250 mg tablet 250 mg PO UD DOSE PK Qty: 6 0RF Rx Instructions: Take two (2) tablets today, then one (1) tablet days #2 thru #5 [id number]-[id number] [Bromfed DM] 2-30-10 mg/5 mL Syrup 5 ml PO Q6H PRN (Reason: Cough) Qty: 240 0RF ondansetron 4 mg Tablet,Disintegrating 4 mg PO Q8H PRN (Reason: Nausea) Qty: 12 0RF Referrals Follow up/Referrals: David Celestin [Primary Care Provider] - See instructions Activity Restrictions/Add. Instructions Additional Instructions/Restrictions: Drink plenty of fluids. Take tylenol or ibuprofen for pain or fever. Take the medications as directed. Follow up with your regular doctor. GO TO THE ER FOR ANY WORSENING SYMPTOMS Clinical Impressions Clinical Impression: Viral syndrome Pharyngitis Qualifiers: Pharyngitis/tonsillitis etiology: unspecified etiology Qualified Code(s): J02.9 - Acute pharyngitis, unspecified Stand Alone Forms Stand Alone Forms: Work/School Release Instructions Patient Instructions: Sore Throat, DI for Pharyngitis/Tonsillopharyngitis -- Child Print Language Print Language: Spanish Discharge ED Provider: Lon Martin [facility] General Stated complaint: body aches, vomiting, dizzy Time Seen by Provider: 04/26/24 13:15 Related Data Previous Rx's ?Medication ?Instructions ?Recorded azithromycin 250 mg tablet 250 mg PO UD DOSE PK #6 tabs 04/26/24 (Zithromax) ewvwpyxrzugntcu-jlerdtwqjgabehf-KI 5 ml PO Q6H PRN Cough #240 mL 04/26/24 2 mg-30 mg-10 mg/5 mL oral syrup (Bromfed DM) ondansetron 4 mg disintegrating 4 mg PO Q8H PRN Nausea #12 tabs 04/26/24 tablet Allergies Allergy/AdvReac Type Severity Reaction Status Date / Time No Known Allergies Allergy Verified 09/03/23 08:30 [facility] Disclaimer: The information contained in this section may have been updated after the patient was seen, as this information can be updated by other users. Medical History Depression Anxiety Urinary tract infection Migraine Social History Smoking Status: Current every day smoker tobacco type: cigarettes packs per day: 1 second hand exposure: Yes alcohol intake: never substance use type: denies use current occupational status: employed Travel in the last 8 weeks: None household members: family housing: apartment current occupational exposures/hazards: No caffeine: Yes Have you lived/traveled outside [place] in past 30 days?: No Contact w/someone who lives/traveled outside [place] past 30 days?: No Exposure to someone with infectious disease in past 14 days?: No Do you have a fever (greater than 100.4 F or 38 C)?: No Have you tested positive for COVID-19: No Exposed to someone with COVID-19 in past 14 days?: No Do you have a sore throat?: No Do you have a cough?: No Do you have any weakness?: No Do you have any diarrhea?: No Are you experiencing any unusual bleeding?: No Do you have any muscle aches/pain?: Yes Do you have any abdominal pain?: No Are you experiencing loss of taste or smell?: No ROS Obtained: Yes All systems reviewed & no additional complaints except as documented Constitutional Constitutional: Reports chills and Reports fever(s) Eyes Eyes: Denies eye discharge ENT Ears, Nose, Mouth, and Throat: Reports as per HPI Cardiovascular Cardiovascular: Denies chest pain Respiratory Respiratory: Denies chest congestion and Reports cough Gastrointestinal Gastrointestingal: Reports nausea; Denies abdominal pain, constipation, cramping, diarrhea or vomiting Musculoskeletal Musculoskeletal: Denies arthralgias Integumentary/Breasts Skin/Breast: Denies rash Neurologic Neurologic: Denies paresthesias Physical Exam General General appearance: alert and in no apparent distress Head Head exam: atraumatic, normocephalic and normal inspection Eye Eye exam: Present normal appearance, PERRL and EOMI ENT ENT exam: Present mucous membranes moist and normal external ear exam Expanded ENT Exam TM/Canal exam: Bilateral TM: erythema and bulging Nose exam: Absent sinus tenderness Mouth exam: Present normal external inspection; Absent drooling Teeth exam: Present normal inspection Throat exam: Present tonsillar erythema, tonsillomegaly and tonsillar exudate Neck Neck exam: Present normal inspection, full ROM and trachea midline; Absent tenderness, meningismus or lymphadenopathy Chest Chest inspection: Present normal inspection and symmetric chest wall rise; Absent tenderness Respiratory Respiratory exam: Present normal lung sounds bilaterally; Absent respiratory distress, wheezes, stridor or accessory muscle use Cardiovascular Cardiovascular exam: Present regular rate and normal rhythm; Absent systolic murmur or diastolic murmur Abdominal Exam Abdominal exam: Present soft and normal bowel sounds; Absent distention, tenderness, guarding, rebound or rigidity Extremities Exam Extremities exam: Present normal inspection and normal capillary refill; Absent calf tenderness Back Exam Back exam: Present normal inspection and full ROM; Absent tenderness, CVA tenderness (R) or CVA tenderness (L) Neurological Exam Neurological exam: Present alert, oriented X3 and CN II-XII intact Psychiatric Psychiatric exam: Present normal affect and normal mood Skin Skin exam: Present warm, dry, intact and normal color Medical Decision Making Medical Records Medical records reviewed: No I reviewed the patient's medical records. Screening: Per USPSTF and CDC recommendations, given the prevalence of disease in our region, it is our hospital?s policy to screen for HIV and viral Hepatitis for all patients aged 18 and over and those with ongoing risk factors. Steven Inquiry Pt receiving controlled substance: No Lab Data Lab results reviewed: Yes I reviewed the patient's lab results.
[2024-04-26 13:16] VITALS: BP 119/74; PULSE 105; RESP 18; TEMP 37.2; O2SAT 100; BMI 25.7
[2024-04-26 13:30] LABS: UTC Influenza A Antigen Negative (Negative); UTC Influenza B Antigen Negative (Negative)
[2024-04-26 13:35] LABS: UTC Strep Screen (Rapid) Positive (Negative)
[2024-04-26 13:47] VITALS: BP 119/74; PULSE 105; RESP 18; TEMP 37.2
== END 2024-04-26 13:48 | disposition home or self-care (01) ==
PROVIDERS: Emergency Provider Nurse Practitioner Family; PCP Pediatrics
DX: J02.9 Acute pharyngitis, unspecified (principal); B34.9 Viral infection, unspecified
CPT/HCPCS: 87804; 87880; 99213; G0381

== ENCOUNTER 2024-08-24 23:51 | Emergency (ER) | payer OTHER, SELFPAY ==
[2024-08-25] VITALS: BP 138/91; PULSE 76; RESP 16; TEMP 36.8; O2SAT 99; BMI 24.7
--- NOTE | 2024-08-25 00:04 | ED_ITS ---
Discharge Plan Disposition Patient Disposition: Home, Self-Care Condition: Good Prescriptions Prescriptions: New amoxicillin-pot clavulanate 875-125 mg tablet 1 tab PO BID Qty: 20 0RF No Action azithromycin [Zithromax] 250 mg tablet 250 mg PO UD DOSE PK Qty: 6 0RF Rx Instructions: Take two (2) tablets today, then one (1) tablet days #2 thru #5 klhlfolrewmpcvf-chamcuyug-WF [Bromfed DM] 2-30-10 mg/5 mL Syrup 5 ml PO Q6H PRN (Reason: Cough) Qty: 240 0RF ondansetron 4 mg Tablet,Disintegrating 4 mg PO Q8H PRN (Reason: Nausea) Qty: 12 0RF Referrals Follow up/Referrals: David Celestin [Primary Care Provider] - See instructions Activity Restrictions/Add. Instructions Additional Instructions/Restrictions: You were evaluated in the ER and are appropriate for discharge at this time. Take the prescribed antibiotics as directed, do not skip doses, do not stop taking them early. Take Tylenol and ibuprofen if needed for pain, do not exceed the recommended dose on the bottle. Drink water and eat a small snack each time you take these medications to avoid side effects. Follow-up with your dentist as scheduled. Also follow-up closely with your primary care doctor for reevaluation. Return to the ER with new, worsening, or otherwise concerning symptoms. Clinical Impressions Clinical Impression: Pain, dental Sinusitis Qualifiers: Sinusitis location: unspecified location Chronicity: unspecified Qualified Code(s): J32.9 - Chronic sinusitis, unspecified Print Language Print Language: Bulgarian Discharge ED Provider: Ramiro Balbuena General Adult HPI General Chief complaint: PAIN Stated complaint: R side face throbbing pressure, pain earache Time Seen by Provider: 08/25/24 00:00 Mode of Arrival: Ambulatory Source of Information: Patient Description of Symptoms (Recalled from ER Triage Doc. by RN): Patient reports pain in the right side of her face that goes up through her ear; states she has been sick for around a week and thinks it is sinut pressure History of Present Illness HPI narrative: 24-year-old female presents to the ER with complaints of pain in the right side of her face. Patient reports 2 weeks ago she had a cold, for the last week she has been developing pain in the right side of her face including her sinuses where the pain started, but has now migrated to her teeth and to her right ear. She reports she is having her teeth removed on September 14 but is concerned she has developed a sinus infection and possibly other infection. She is not currently on any daily medications, no known drug allergies. Patient reports no fevers, chills, chest pain, difficulty breathing, no current cough, sore throat, or runny nose. No numbness, tingling, or weakness. Patient has tried Tylenol and ibuprofen intermittently at home for pain management without significant success. No other complaints or concerns at this time. Related Data Previous Rx's ?Medication ?Instructions ?Recorded azithromycin 250 mg tablet 250 mg PO UD DOSE PK #6 tabs 04/26/24 (Zithromax) agqgahcjbsjhxer-yhxfdeyuiqhlooi-QC 5 ml PO Q6H PRN Cough #240 mL 04/26/24 2 mg-30 mg-10 mg/5 mL oral syrup (Bromfed DM) ondansetron 4 mg disintegrating 4 mg PO Q8H PRN Nausea #12 tabs 04/26/24 tablet amoxicillin 875 mg-potassium 1 tab PO BID #20 tabs 08/25/24 clavulanate 125 mg tablet Allergies Allergy/AdvReac Type Severity Reaction Status Date / Time No Known Allergies Allergy Verified 09/03/23 08:30 [facility] Disclaimer: The information contained in this section may have been updated after the patient was seen, as this information can be updated by other users. Medical History Depression Anxiety Urinary tract infection Migraine Social History Smoking Status: Current every day smoker tobacco type: cigarettes packs per day: 1 second hand exposure: Yes alcohol intake: never substance use type: denies use current occupational status: employed Travel in the last 8 weeks: None household members: family housing: apartment current occupational exposures/hazards: No caffeine: Yes Other Medical History Have you received the Flu Vaccine for this season: No Have you received the Pneumonia Vaccine: No ROS Obtained: Yes Systems reviewed as appropriate & no additional complaints except as documented Per HPI Physical Exam General General appearance: alert and in no apparent distress Head Head exam: atraumatic and normocephalic Eye Eye exam: Present PERRL and EOMI ENT ENT exam: Present mucous membranes moist, TM's normal bilaterally and other (Tenderness over right maxillary sinus with trace swelling overlying the right maxillary sinus) Expanded ENT Exam Mouth exam: Present normal external inspection; Absent drooling, trismus or tongue elevation Teeth exam: Present dental caries, fractured tooth # (Multiple fractured right maxillary molars) and dental tenderness # (Tenderness at the base of the right maxillary molars without evidence of abscess) Throat exam: Present normal inspection; Absent tonsillar erythema, tonsillomegaly or tonsillar exudate Comment: No woodiness of the floor the mouth, no sublingual or submandibular swelling Neck Neck exam: Present normal inspection and full ROM Chest Chest inspection: Present symmetric chest wall rise Respiratory Respiratory exam: Absent respiratory distress or stridor Cardiovascular Cardiovascular exam: Present regular rate and normal rhythm Abdominal Exam Abdominal exam: Present soft; Absent distention or tenderness Extremities Exam Extremities exam: Present full ROM Neurological Exam Neurological exam: Present alert and oriented X3; Absent motor sensory deficit Psychiatric Psychiatric exam: Present normal affect and normal mood Skin Skin exam: Present warm and dry Medical Decision Making Medical Records Medical records reviewed: Yes I reviewed the patient's medical records. Screening: Per USPSTF and CDC recommendations, given the prevalence of disease in our region, it is our hospital?s policy to screen for HIV and viral Hepatitis for all patients aged 18 and over and those with ongoing risk factors. MR Comment: Patient was evaluated in April at [facility] with complaints of sore throat. Prescribed azithromycin, Bromfed, Zofran. Steven Inquiry Pt receiving controlled substance: No Vital Signs: 08/25/24 00:00 Temperature 98.2 F Temperature Source Oral Pulse Rate [Right Radial] 76 Respiratory Rate 16 Blood Pressure [Right Arm] 138/91 H Blood Pressure Mean [Right Arm] 106 Blood Pressure Source [Right Arm] Automatic Cuff Blood Pressure Position [Right Arm] Supine 02 Sat by Pulse Oximetry 99 Oxygen Delivery Method Room Air Orders (Tests/Meds): ED MEDICATIONS Discontinued Medications Generic Name Dose Route Start Last Admin Trade Name Freq PRN Reason Stop Dose Admin Amoxicillin/Clavulanate Potassium 1 each 08/25/24 00:00 Amoxicillin/Clavulanate Potassium 875/125mg Tablet PO 08/25/24 00:01 ONCE ONE Medical Decision Narrative: In summary, this 24-year-old female presents to the emergency department today with right sided facial pain, dental pain, ear pain. On initial evaluation patient is hemodynamically stable, afebrile, overall well-appearing. Patient has mild swelling over the right maxillary sinus as well as associated tenderness, no erythema. No evidence of facial cellulitis though this was considered on my differential. Patient has multiple right maxillary molar fractures however none of these appear recent, she also has associated dental caries, additionally patient has tenderness at the base of these teeth without evidence of abscess. I had considered ear infection but patient has no evidence of this on exam, TMs normal bilaterally. On my differential I had also considered more serious possibilities such as Ray's angina but have no evidence of this clinically. Findings are most consistent with sinusitis and possibly very early dental infection. Patient has already taken ysyu-wjm-[id number] pain medication which I encouraged her to continue taking. She received a dose of Augmentin in the ER and this was prescribed to her as well. She already has outpatient follow-up scheduled to have her teeth removed and I encouraged her to keep this appointment. Patient was given instructions on symptomatic management, follow up instructions, and return precautions for the emergency department. Patient indicated understanding and was discharged in stable condition. Critical Care Critical Care Time Critical Care Time: No
[2024-08-25] MEDS: AMOXICILLIN/CLAVULANATE POTASSIUM 875/125MG TABLET 1 EACH PO (00:12)
[2024-08-25 00:22] VITALS: BP 130/72; PULSE 72; RESP 16; TEMP 36.8; O2SAT 99
== END 2024-08-25 00:23 | disposition home or self-care (01) ==
LOC: ER 08-25 00:05
PROVIDERS: Emergency Provider Emergency Medicine; PCP Pediatrics
DX: J01.00 Acute maxillary sinusitis, unspecified (principal)
CPT/HCPCS: 99283